=== PATIENT | male | born 1945 | race Caucasian/White ===

== ENCOUNTER 2016-09-26 14:35 | Emergency (ER) | payer OTHER ==
[~2016-09-26] VITALS: Ht 172.7 cm; Wt 127.0 kg
[~2016-09-26 14:35] MED LIST: ALLOPURINOL 30300 M2 PO; BENAZEPRIL HCL20 MG PO; CELEBREX 200 M200 MG PO; COMPOUNDING CREAM; CRESTOR10 MG PO; FISH OIL 1,001000 M2 PO; HYDROCODON-ACE1 EAC7 PO; HYDROCODON-ACE1 EACH PO; MELATONIN1 MG PO; NEURONTIN 300300 M1 PO; NORCO 5-325 TA1 EACH PO; PANTOPRAZOLE SO40 M1 PO; PROSTATE HEALT1 EAC1 PO; XALATAN2.5 ML OP; ZANAFLEX4 MG PO; ZANTAC 150MG T150 M1 PO
[2016-09-26] MEDS ORDERED: COLACE100 MG PO (15:16)
[2016-09-26] MEDS ORDERED: NORCO 5-325 TA1 EACH PO (15:27)
== END 2016-09-26 15:57 | disposition home or self-care (01) ==
LOC: ER 14:35
DX: S62.615A Displaced fracture of proximal phalanx of left ring finger, initial encounter for closed fracture (principal); I10 Essential (primary) hypertension; K21.9 Gastro-esophageal reflux disease without esophagitis; E78.5 Hyperlipidemia, unspecified; G89.29 Other chronic pain; M47.892 Other spondylosis, cervical region; H40.9 Unspecified glaucoma; Z90.49 Acquired absence of other specified parts of digestive tract; Z98.890 Other specified postprocedural states

== ENCOUNTER → 2016-12-29 | Outpatient (CLI) | payer OTHER ==
[~2016-12-29] VITALS: Ht 172.7 cm; Wt 127.5 kg
[~2016-12-29] MED LIST changes: +COLACE100 MG PO
--- NOTE | ~2016-12-29 | HPC ---
[facility] [place] [address] PAIN MANAGEMENT CONSULTATION Name: DEONTE NAIR Room #: REG Sagar Mckeon#: [id number] Admission: 12/29/16 Attend Phys: Ajit Sahu DO Discharge: Date of : 43 Report #: [id number] THIS REPORT FOR: //name// CC: Jaron Sahu HISTORY OF PRESENT ILLNESS: The patient is a very pleasant 71-year-old gentleman. I have treated him since about 2008 for symptomatic lumbar radiculopathy. He has done well with occasional epidural injections. He had 4 lumbar epidural injections in 2015. He has had 2 or 3 injections in 2014, 2013, 2012, again dating back to 2008. Notes, pain has begun to recur in his left back and leg. Pain is exacerbated with standing, walking and bending. Rates his pain 3 on a VAS at present though it does get problematic to the point that it interferes with function. He notes burning, tingling, spasm in his back. He is taking tizanidine and hydrocodone 5/325 p.r.n. Gabapentin 600 mg at bedtime for diabetic peripheral neuropathy. He takes Celebrex 200 mg daily ongoing. His current symptoms have eclipsed on those medications. PHYSICAL EXAMINATION: Shows a 71-year-old gentleman, moderately obese with a BMI of 42.7 kilograms per meter squared, vital signs; however, are stable. He does not use tobacco products. He rises from chair using armrest, modestly antalgic gait, decreased left hip flexion and lower extremity extension strength. Modestly positive straight leg raise on the left with diminished patellar reflex on the left side. 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 ASSESSMENT: 1. Symptomatic lumbar radiculopathy with left L3 radicular pain pattern in a gentleman with morbid obesity and requiring high risk complex medication management. 2. Acute exacerbation of lumbar radiculopathy, left L3 pattern. RECOMMENDATIONS: After discussion with the patient today, we have elected to renew hydrocodone 5/325, take one tablet q. 4 hours as needed for pain, dispensed 100 tablets. His last prescription for 90 tablets was in February of last year. He uses these with great restraint. We will renew tizanidine 4 mg t.i.d. for spasm, 90 tablets with 3 refills. His Celebrex is being prescribed by his general counsel physician. PROCEDURE: Left L3 transforaminal epidural injection under fluoroscopy. PROCEDURE NOTE: After both written and informed [place] [address] PAIN MANAGEMENT CONSULTATION Name: NAIRDEONTE Room #: REG [facility] Linda#: [id number] Admission: 12/29/16 Attend Phys: Ajit Sahu DO Discharge: Date of : 43 Report #: [id number] risk of spinal cord damage, infection, increased pain and paralysis, the patient agreed to proceed. The patient was taken to the fluoroscopy suite, placed in a prone position with appropriate abdominal bolstering. After sterile prep with ChloraPrep and sterile drape, a skin wheal with 1% Xylocaine was raised. A 22 gauge 4-1/2 inch epidural Tuohy needle was inserted. From an oblique approach into the posterior-superior aspect of the left L3-L4 neural foramen with continuous pressure on the glass syringe plunger for loss of resistance. Glass syringe was filled with 2 cc of 0.1 Xylocaine. The glass loss of resistance syringe was removed. A low volume extension tubing was connected, negative aspiration was accomplished for cerebrospinal fluid or blood. 1 mL of Omnipaque was injected which showed spread both within the epidural space and laterally along the nerve root. This was followed with 80 mg of triamcinolone plus 1 mL of 1.5% preservative-free Xylocaine. Needle was partially withdrawn, 0.5 mL of Xylocaine was injected to clear the needle and the needle was removed. The area was cleansed, band-aid was applied. The patient was allowed to ambulate to the recovery room, discharged in good and stable condition. <ELECTRONICALLY SIGNED> By: Ajit Sahu DO 01/01/17 0755 [id number] 1801 Ajit Sahu DO /nt
[2016-12-29 10:22] VITALS: BP 141/80
== END | disposition home or self-care (01) ==
LOC: PAIN 06:47
DX: M54.16 Radiculopathy, lumbar region (principal); G89.29 Other chronic pain; E11.42 Type 2 diabetes mellitus with diabetic polyneuropathy; E66.01 Morbid (severe) obesity due to excess calories; Z79.891 Long term (current) use of opiate analgesic; Z98.890 Other specified postprocedural states; Z68.41 Body mass index [BMI] 40.0-44.9, adult; Z79.899 Other long term (current) drug therapy

== ENCOUNTER → 2017-01-11 | Outpatient (CLI) | payer OTHER ==
[~2017-01-11] VITALS: Ht 172.7 cm; Wt 124.0 kg
--- NOTE | ~2017-01-11 | HPC ---
[facility] [place] [address] PAIN MANAGEMENT CONSULTATION Name: DEONTE NAIR Juan J Room #: REG [facility] [id number] Admission: 01/11/17 Attend Phys: Ajit Sahu DO Discharge: Date of : 44 Report #: [id number] THIS REPORT FOR: //name// CC: Jaron Sahu The patient is a 71-year-old gentleman who has long been treated for symptomatic lumbar radiculopathy. He has been treated since 2008 with occasional epidural injections, he had a transforaminal injection, left L3, 12/29/2016. Prior, he had had an injection back in February 2016. He had had a total of 4 epidural injections in 2015, 4 in 2014 and 1 in 2013. He returns to pain clinic today. He notes that injection at last visit afforded very good relief, in fact rates his subjective pain score at 1 on a VAS. He still has a little bit of paresthesia in the low back, left calf to foot, but it is nominal. He notes gait is much improved. PHYSICAL EXAMINATION: Shows 71-year-old gentleman, elevated BMI of 41.6, blood pressure 131/71, pulse 70, respirations 20. Alert and oriented to person, place and time, judged to be a reasonable historian. Cervical range of motion is full. Rises from chair using armrest. Gait is tandem. Lumbar flexion is modestly limited. Lower extremity strength is generally preserved. Again, the patient reports 95% ongoing relief following the epidural injection at last visit. He does take Celebrex 200 mg 1 a day and gabapentin 300 mg 2 tablets at bedtime. We had a long talk about therapeutic options today. MRI quite dated from 2007 notes changes at multiple levels L3-L4, L4-L5 and L5-S1, but again he has been remarkably stable with occasional epidural injections. RECOMMENDATIONS: 1. No interventional therapy required today. 2. If and when symptoms start to recur, we will have him increase his gabapentin from 300 mg 2 tablets at bedtime to 3 at bedtime titrating up to 1 in the morning and 3 at bedtime. Continue Celebrex 200 mg 1 a day. These have both been prescribed by Dr. Wagoner. I will be happy to see him if and when recurrent radicular symptoms arise. We can repeat the left L3 transforaminal epidural injection; however, presently doing remarkably well. We will postpone interventional therapy. Follow up as needed. By: 1520 46 Ajit Sahu DO /nt
[2017-01-11 11:30] VITALS: BP 131/71
== END | disposition home or self-care (01) ==
LOC: PAIN 07:06
DX: M54.16 Radiculopathy, lumbar region (principal); G89.29 Other chronic pain; Z98.890 Other specified postprocedural states; Z79.899 Other long term (current) drug therapy

== ENCOUNTER → 2018-05-17 | Outpatient (CLI) | payer OTHER ==
[~2018-05-17] VITALS: Ht 172.7 cm; Wt 127.0 kg
--- NOTE | 2018-05-20 15:25 | P ---
[facility] [place] [address] [place] [address] PROCEDURE REPORT Name: DEONTE NAIR Room #: REG [facility]#: [id number] Admission: 05/17/18 Attend Phys: Alex Noriega MD Discharge: Date of : 43 Report #: [id number] THIS REPORT FOR: //name// CC: Alex Charles MD DATE OF SERVICE: 05/17/2018 BRIEF HISTORY: The patient is a 73-year-old male known to me with a history of a small well-differentiated duodenal carcinoid tumor in 2012, so it was removed by endoscopic mucosal resection. He presents today for followup. He reports that he has been discharged from Dr. Charles's care with regards to follow up and his last urine for 5-HIAA was normal. PREOPERATIVE DIAGNOSES: History of duodenal carcinoid, also history of reflux disease. POSTOPERATIVE DIAGNOSIS: History of duodenal carcinoid. MEDICATIONS: Deep sedation with propofol per anesthesia. SPECIMEN: None. ESTIMATED BLOOD LOSS: None. PROCEDURE: EGD. FINDINGS: Prior to propofol sedation, procedure of upper endoscopy discussed with the patient as well as potential risks and its complications. He indicates he understands and desires that we proceed. DESCRIPTION OF PROCEDURE: With the patient in left lateral decubitus position, Olympus video endoscope was inserted in cervical esophagus under direct vision without difficulty. Examination of this organ through its entire length revealed normal esophageal mucosa down the squamocolumnar junction. It was noted that the patient has a history of severe esophagitis and grade D esophagitis in the past. There was no endoscopic evidence of esophagitis today. The squamocolumnar junction was normal. The mucosa was flat without ulcers or strictures. There was no evidence of Austin's mucosa. The hiatus hernia was not seen today. The scope was advanced in the stomach, was examined on end view as well as retroflexed views with normal appearing gastric mucosa. Upon retroflexion, no mass lesions were seen. The pylorus was normal. Duodenal bulb was normal. Duodenal sweep down to the fourth portion was normal. The scope was slowly withdrawn to the duodenal sweep and no lesions were seen. [facility] [address] [place] [address] PROCEDURE REPORT Name: DEONTE NAIR Juan J Room #: REG [facility]#: [id number] Admission: 05/17/18 Attend Phys: Alex Noriega MD Discharge: Date of : 44 Report #: [id number] duodenal papilla was identified and well seen and was noted to be within normal limits. At that point, the scope was slowly withdrawn and careful when circumferential views confirmed the above findings. The patient tolerated the procedure well. CONDITION OF THE PATIENT UPON DISCHARGE: Following procedure, the patient drowsy and prepared for colonoscopy. INSTRUCTIONS TO THE PATIENT AND FAMILY AT THE TIME OF DISCHARGE: No suspicious lesions seen in the duodenum. The exam was otherwise unremarkable. His esophagitis has endoscopically healed. He has been using pantoprazole at lowest dose to control symptoms and he adjusts as needed based on symptoms. He will continue to do the same. I would encourage weight loss with regards to his reflux. Would consider followup EGD in about 5 years. <ELECTRONICALLY SIGNED> By: Alex Noriega MD 05/20/18 1525 1006 1231 Alex Noriega MD /nt
--- NOTE | 2018-05-20 15:25 | P ---
[facility] [place] [address] [place] [address] PROCEDURE REPORT Name: DEONTE NAIR Room #: REG [facility]#: [id number] Admission: 05/17/18 Attend Phys: Alex Noriega MD Discharge: Date of : 43 Report #: [id number] THIS REPORT FOR: //name// CC: Alex Wagoner MD BRIEF HISTORY: The patient is a 73-year-old male with family history of colon cancer, father age 58. PREOPERATIVE DIAGNOSIS: High risk screening colonoscopy. POSTOPERATIVE DIAGNOSES: 1. Colon polyps. 2. Mild sigmoid diverticulosis coli. MEDICATIONS: Deep sedation with propofol per Anesthesia. SPECIMENS: 1. Diminutive polyp, proximal ascending colon. 2. Diminutive polyp at 40 cm. ESTIMATED BLOOD LOSS: 3 mL. PROCEDURE: Colonoscopy to cecum and terminal ileum with biopsy. FINDINGS: Prior to propofol sedation, procedure of colonoscopy discussed with the patient as well as potential risks and its complications. He indicates he understands and desires to proceed. DESCRIPTION OF PROCEDURE: With the patient in left lateral decubitus position, digital examination was completed which revealed no abnormalities. Subsequently, the Olympus video colonoscope was introduced in the rectum, advanced under direct vision to the cecum. Done with minimal difficulty. The cecum was identified by the ileocecal valve and the appendiceal orifice. I was able to visualize the distal segment of the terminal ileum, which was inspected and noted to be unremarkable. At that point, the scope was slowly withdrawn and careful circumferential views obtained including retroflexion in the ascending colon. Upon slow withdrawal of the scope, the prep was good, the mucosa was within normal limits, normal vascular pattern, normal light reflex. As we withdrew the scope, a flat 4 x 5 mm polyp was seen in the very proximal ascending colon. It was removed with large cup biopsy forceps. Scope was further withdrawn and no additional abnormalities were noted until we reached the sigmoid colon. At 40 cm, a diminutive polyp was seen and removed by biopsy. In addition, the patient did have scattered small diverticula. There was no endoscopic evidence of diverticulitis. The scope was withdrawn. No additional abnormalities were seen. Upon retroflexion of the rectum, no abnormalities were [facility] [address] [place] [address] PROCEDURE REPORT Name: DEONTE NAIR Juan J Room #: REG [facility]#: [id number] Admission: 05/17/18 Attend Phys: Alex Noriega MD Discharge: Date of : 43 Report #: [id number] seen. Scope was withdrawn. The patient tolerated the procedure well. CONDITION OF THE PATIENT UPON DISCHARGE: Following procedure, the patient was drowsy, arousable, conversant and will be discharged home when fully ambulatory. INSTRUCTIONS TO THE PATIENT AND FAMILY AT THE TIME OF DISCHARGE: The patient with family history of colon cancer as noted. Diminutive polyps identified and removed as described above. We will follow up on the pathology. Also, in view of his family history of colon cancer, I would suggest he return for a followup colon exam in 5 years. Last colonoscopy was more than 5 years ago. Withdrawal time from the cecum was 17 minutes 35 seconds. <ELECTRONICALLY SIGNED> By: Alex Noriega MD 05/20/18 1525 1037 1422 Alex Noriega MD /nt
--- NOTE | 2018-05-21 11:10 | PATH ---
[facility] [address] [place] [address] PATHOLOGY RPT PROCEDURE Name: DEONTE NAIR Juan J Room #: REG YAYA Mckeon#: [id number] Admission: 05/17/18 Date of : 43 Discharge: Report #: [id number] Path Case #: [id number] [facility] Accession Number: [id number] . 01 Material submitted: . PART A: PROXIMAL ASCENDING COLON POLYP PART B: COLON POLYP 40 CM . 01 Clinical history: . Pre-OP DX: Family history colon cancer, history of duodenal carcinoid Post-OP DX: Colon polyps . 02 Diagnosis: A. Polyp, proximal ascending colon polyp, endoscopic biopsy: - Hyperplastic polyp. - Negative for dysplasia. . B. Polyp, colon polyp 40 cm, endoscopic biopsy: - Tubular adenoma. - Negative for high grade dysplasia. (IUV:at;05/20/2018) QTA/05/20/2018 . 02 Electronically signed: . Naomi Garcia MD, Pathologist NPI- [id number] . 01 Gross description: . A. Received in formalin labeled "Deonte Nair, proximal ascending colon polyp BX," are 2 segments of white soft tissue measuring 0.9 x 0.3 x 0.3 cm in aggregate dimensions and ranging from 0.4 to 0.5 cm in maximum dimension. The specimen is submitted entirely in cassette A1. . B. Received in formalin labeled "Deonte Nair, colon polyp 40 cm BX," is a single segment of white soft tissue measuring 0.3 cm in maximum dimension. The specimen is entirely submitted in cassette B1. (TSD; 05/17/2018) TOB/TOB . 02 Pathologist provided ICD-10: K63.5, D12.6 . 02 CPT . 706274, 002069 Specimen Comment: A courtesy copy of this report has been sent to Specimen Comment: [phone], . Specimen Comment: Report sent to / [place] [address] PATHOLOGY RPT PROCEDURE Name: DEONTE NAIR Room #: REG YAYA Mckeon#: [id number] Admission: 05/17/18 Date of : 43 Discharge: Report #: [id number] Path Case #: [id number] Performed at: 01 [facility] Sheri Enciso [address] [place] [address] [address], [place], [place] [id number] MD Eugene Lopez MD Phone: [phone] Performed at: [address] [id number] MD Naomi Garcia MD Phone: [phone]
== END | disposition home or self-care (01) ==
LOC: GI 05-16 11:33
DX: Z12.11 Encounter for screening for malignant neoplasm of colon (principal); K63.5 Polyp of colon; D12.5 Benign neoplasm of sigmoid colon; K57.30 Diverticulosis of large intestine without perforation or abscess without bleeding; K21.9 Gastro-esophageal reflux disease without esophagitis; I10 Essential (primary) hypertension; E78.5 Hyperlipidemia, unspecified; H40.9 Unspecified glaucoma; M10.9 Gout, unspecified; Z90.49 Acquired absence of other specified parts of digestive tract; Z80.0 Family history of malignant neoplasm of digestive organs; Z98.0 Intestinal bypass and anastomosis status; Z86.012 Personal history of benign carcinoid tumor; Z98.890 Other specified postprocedural states; Z79.899 Other long term (current) drug therapy
CPT/HCPCS: 62110; 62900

== ENCOUNTER → 2018-06-06 | Outpatient (CLI) | payer OTHER ==
[~2018-06-06] VITALS: Ht 172.7 cm; Wt 126.6 kg
--- NOTE | ~2018-06-06 | HPC ---
[facility] [address] [place] [address] PAIN MANAGEMENT CONSULTATION Name: DEONTE NAIR Room #: REG [facility] Linda#: [id number] Admission: 06/06/18 Attend Phys: Rah Cabral MD Discharge: Date of : 43 Report #: [id number] THIS REPORT FOR: //name// CC: JARON Cabral DATE OF SERVICE: 06/06/2018 Followup visit for chronic low back pain radiating into the left leg. This is my first visit with the patient. He has been seeing Dr. Ajit Sahu in our clinic for approximately 10 years. His visits have been spaced about every 6-12 months. He has low back pain with radiculopathy and has received epidural injections on and off over the years. Unfortunately, if they were helpful early on, they have not been so over the last year or two. Dr. Sahu has attempted to move the injection slightly by performing a transforaminal at L3-L4. He has a fairly significantly degenerative disk at that level, but has not had an MRI for over 10 years to determine the soft tissue findings. His pain is more in the L5-S1 distribution involving the lateral aspect and posterior aspect of the leg. It is worse with standing and weightbearing. He is finding that it is harder and harder for him to do these activities, which is disappointing to him. He has been using a bit of pain medication to help him get through his day. He is reluctant to use hydrocodone and Dr. Sahu provided him with 100 hydrocodone 5/325 tablets on 09/20/2017. He still has about 5 or 10 left. He uses it mostly when the pain is severe or if he needs to do something that he must do. He always gets some pain relief. MEDICATIONS: Reviewed and reconciled. All other medications are provided by his primary care physician, Dr. Jaron Wagoner. He is on treatment for hypertension and takes gabapentin and Celebrex per record. He is on no blood thinners. He is morbidly obese with a BMI of 42.5. He is considered at low risk with the risk assessment tool of 0 for any addictive behaviors with his opioids. His functional assessment tool score is 31. SOCIAL HISTORY: He denies use of tobacco or alcohol. PHYSICAL EXAMINATION: GENERAL: Pleasant gentleman, moves easily from sitting to standing position, but cannot straighten up unless he takes a few steps. Once he is straight and starts moving, the pain in his back and his leg diminishes somewhat. He complains of pain mostly to the buttock. His gait is markedly antalgic. VITAL SIGNS: Blood pressure 127/79, heart rate 84, respirations 16. BMI 42.5. CHEST: Clear. CARDIAC: Rhythm is regular. [address] [address] PAIN MANAGEMENT CONSULTATION Name: DEONTE NAIR [facility] [id number] Admission: 06/06/18 Attend Phys: Rah Cabral MD Discharge: Date of : 43 Report #: [id number] MUSCULOSKELETAL: Examination of the spine reveals tenderness across the lumbosacral segment. Positive straight leg raising is noted on the left. There is pain in the hip. There is also a fair amount of tenderness about the knee joint, which demonstrates crepitus with movement. There is tenderness laterally as well as in the popliteal fossa laterally. He has decreased sensation in the calf. Deep tendon reflexes are absent bilaterally at knees and ankles. IMPRESSION: 1. Chronic low back pain with radiation into the left hip and leg. I believe this is likely radiculopathy, although it may be involving the L4-L5 nerve root. It could be involved from the lateral recess at the level of the degenerative disk at L3-L4, but could be lower as well. He does not want to have an MRI at this time. 2. Morbid obesity. 3. Hypertension. RECOMMENDATIONS: 1. I will continue his medication. We had a long discussion today about opioids in treatment of chronic intractable pain. His MME is currently less than 5 per day. This is considered ultra low use of an opioid medication. He may use it going forward effectively. 2. Epidural steroid injection might be repeated at a lower level. I would consider an L5 transforaminal or perhaps an L4-L5 two-level transforaminal and see if that provides more relief than the higher injection. This would be more in correlation with his dermatomal distribution of pain. 3. Medications provided. Preauthorization was sought for his injection and we will see him back in the clinic within the next month or two. By: 1228 1659 Rah Cabral MD /nt
[2018-06-06 09:30] VITALS: BP 127/79
--- NOTE | 2018-06-06 09:32 | NUR ---
Pain Clinic Assessment: 1. History of Osteoarthritis: History of Rheumatoid Arthritis: 2. Height: 5 ft. 8 in. 172.7 cm. Weight: 279.2 lb. oz. 126.645 kg. Patient's BMI: 42.5 3. Vital Signs: BP: 127/79 Pulse: 84 Resp: 16 Temp: 02 Sat: 97 ECG Mon: 4. Pain Intensity: 4-5 5. Fall Risk: Dizziness: N Needs help standing or walking: N Fallen in the last 3 months: N Fall risk comments: 6. Patient on Blood Thinner: None 7. History of Hypertension: Y 8. Opioid Therapy greater than 6 weeks: Y Opiate Contract Signed: 02/18/16 9. Risk Assessment Tool Provided: low risk 0 10. Functional Assessment Tool: 31 11. Recreational Drug Use: Never Drug Type: Tobacco Use: Never Smoker Tobacco Type: Amount or Packs/day: How Many Years: Alcohol Use: No Frequency: Quant:
== END ==
LOC: PAIN 05-30 10:42
DX: M54.5 Low back pain (principal); G89.29 Other chronic pain; M79.605 Pain in left leg; M25.552 Pain in left hip; I10 Essential (primary) hypertension; E66.01 Morbid (severe) obesity due to excess calories

== ENCOUNTER → 2018-12-26 | Outpatient (CLI) | payer OTHER ==
[~2018-12-26] VITALS: Ht 172.7 cm; Wt 122.9 kg
[~2018-12-26] MED LIST changes: +NORCO 5-325 TA1 EAC1 PO
[2018-12-26 10:04] VITALS: BP 136/73
--- NOTE | 2018-12-26 10:08 | NUR ---
Pain Clinic Assessment: 1. History of Osteoarthritis: Not Applicable History of Rheumatoid Arthritis: Not Applicable 2. Height: 5 ft. 8 in. 172.7 cm. Weight: 271.0 lb. oz. 122.925 kg. Patient's BMI: 41.2 3. Vital Signs: BP: 136/73 Pulse: 71 Resp: 18 Temp: 02 Sat: 95 ECG Mon: 4. Pain Intensity: 2 5. Fall Risk: Dizziness: N Needs help standing or walking: N Fallen in the last 3 months: N Fall risk comments: 6. Patient on Blood Thinner: None 7. History of Hypertension: Y 8. Opioid Therapy greater than 6 weeks: Y Opiate Contract Signed: 02/18/16 9. Risk Assessment Tool Provided: low risk 0 10. Functional Assessment Tool: 11. Recreational Drug Use: Never Drug Type: Tobacco Use: Never Smoker Tobacco Type: Amount or Packs/day: How Many Years: Alcohol Use: No Frequency: Quant:
--- NOTE | 2018-12-30 12:52 | HPC ---
[facility] [place] [address] PAIN MANAGEMENT CONSULTATION Name: DEONTE NAIR [facility] [id number] Admission: 12/26/18 ������������������ Attend Phys: Saadia Jorge Discharge: ������������������ Date of : 43 Report #: [id number] THIS REPORT FOR: //name// CC: Saadia Joreg Jaron Wagoner DATE OF SERVICE: 12/26/2018 CHIEF COMPLAINT: Chronic low back pain with lumbar radiculopathy. HISTORY OF PRESENT ILLNESS: This is a very pleasant gentleman of 73 years old that returns to the pain clinic today for a refill of his medication that he takes very sparingly to help treat his low back pain with radiculopathy. He reports that his pain score is a 2/10 today. Most of his issues are related to his peripheral neuropathy in his feet and legs, though he does have some pain in his knees and right shoulder. He feels that the hydrocodone taking about an average of 4 tablets a week are very beneficial in controlling his pain. He reports exacerbation of pain with walking and standing and prior to other activities such as mowing the lawn or going to restorationist. He does take his medicine prophylactically on those days and finds them very beneficial. He would like a refill of his hydrocodone today, which was last filled in May. ALLERGIES: No known drug allergies. CURRENT LIST OF MEDICATIONS: Hydrocodone 5/325, Colace, gabapentin 300 mg 4 times a day, prostate health capsules, fish oil, Protonix, Crestor, allopurinol, Celebrex, and Lotensin. PQRS: 1. He has arthritic changes in his bilateral knees and lumbar spine. Denies any rheumatoid arthritis. 2. Height is 5 feet 8 inches, weight is 271, BMI is 41. 3. Vital signs: Blood pressure 136/73, pulse is 71, respirations 18, oxygen sat is 95. 4. Pain score is 2/10. 5. Denies dizziness, does not need help walking or standing, has not fallen in the last 3 months. 6. The patient is not on any blood thinners, but does take medicine for hypertension. His opioid therapy is greater than 6 weeks; therefore, an opioid signed contract is on the chart. 7. Risk assessment tool is low. Functional assessment is . 8. Recreational drug use, he denies. He is not a smoker and does not drink alcohol. According to the prescription monitoring system, the patient last filled his medication in May. He does take this medicine very sparingly. According [facility] [address] [place] [address] PAIN MANAGEMENT CONSULTATION Name: DEONTE NAIR [facility] [id number] Admission: 12/26/18 ������������������ Attend Phys: Saadia Jorge Discharge: ������������������ Date of : 43 Report #: [id number] to the CDC guidelines, he is less than 20 MME per day, some days 0, some days 20. PHYSICAL EXAMINATION: GENERAL: This is a pleasant gentleman of 73 years old who appears his stated age. He is alert and orientated. HEENT: Normocephalic, atraumatic. Extraocular eye muscles are intact. Mucous membranes are moist. MUSCULOSKELETAL: The patient moves easily from sitting to standing position. His gait is markedly antalgic. He has tenderness in the lumbosacral segment of his spine. Positive straight leg raising noted on the left. Crepitus in bilateral knees. He has decreased sensation in his lower extremities. Strength is generally preserved. His lumbar flexion is limited. IMPRESSION: 1. Chronic low back pain with radiculopathy following the L4-L5, L5-S1 dermatomal distribution. 2. Bilateral knee pain. 3. Morbid obesity. 4. Complex medical management under terms of written opioid agreement. We reviewed the fact that opiate medications are being used to provide analgesia adequate to support activities of daily living, not attempting to achieve a specific pain score on the 0-10 Visual Analog Scale. The current opiate medications are providing sufficient analgesia to allow the patient to participate in activities of daily living. The patient is not exhibiting any aberrant behavior suggestive of drug diversion. The patient is not having any adverse reactions to medications. The patient is not suffering from daytime somnolence or mental acuity changes. The patient is managing opiate-induced constipation with appropriate tvbh-qsh-jwbjjdr agents and dietary considerations. The patient was counseled on concern for caution with operating a motor vehicle while using opiate medications. A physical exam was performed and the patient's functional status was evaluated. All patients with back pain were advised against the bed rest greater than 4 days and were advised to return to normal activities. Pain score assessment was noted and the treatment plan was reviewed with the patient. All current medications, both prescribed and OTC were reviewed and reconciled on the electronic medical record. Tobacco screening was accomplished and smoking cessation was advised when indicated. BMI was noted and diet/exercise modification was recommended for all patients following outside normal parameters. I reviewed with the patient today their responsibilities to safeguard prescription medications, reviewed their responsibility to utilize medications only as prescribed by the physician. They are to seek and receive pain medications only from 1 physician group ([facility]). They are to use 1 pharmacy and keep the clinic informed if they change pharmacies. Their [facility] [address] [place] [address] PAIN MANAGEMENT CONSULTATION Name: DEONTE NAIR Room #: REG [facility]#: [id number] Admission: 12/26/18 ������������������ Attend Phys: Saadia Jorge Discharge: ������������������ Date of : 43 Report #: [id number] responsibilities include making followup visits in a timely fashion and to avoid abrupt discontinuation of medication usage. Their responsibilities further include bringing their medications (bottles from the pharmacy with residual pills) to the visit for possible confirmation of pill counts and the patient understands it is their responsibility to submit to random drug screens to ensure both that the medications prescribed are present, and that no other controlled substances are present. All prescriptions provided today were generated electronically. PLAN: 1. We discussed treatment options with the patient today. The patient had seen Dr. Ajit Sahu in the past and had received numerous injections that were very beneficial. He is somewhat reluctant to have injections with his new physician, Dr. Rah Cabral. I explained to him that all of his physicians are very well trained in giving the epidurals. If he feels that he needs one in the future, Dr. Cabral is capable of doing that for him. The patient felt reassured by this. He does not feel he needs them right now, doing quite well, but if his symptoms worsen, he will make an appointment. 2. Scripts given today for hydrocodone 5/325, #100. This does not last the patient several months since he takes these very sparingly before activities. His last fill was in May. There is a prior authorization on the chart that he is able to fill this medication until May of 2019 without additional prior authorizations. 3. The patient is seen by Dr. Rah Cabral who collaborated care today and saw him as well. The patient will return as needed for an injection or medication refills. ��������������������������������������������� <ELECTRONICALLY SIGNED> ���������������������������������������� By: Saadia Jorge ��������������������������������������������� 12/30/18 1252 [id number] Saadia Jorge /nt
== END ==
LOC: PAIN 06:52
DX: M47.26 Other spondylosis with radiculopathy, lumbar region (principal); M25.561 Pain in right knee; M25.562 Pain in left knee; E66.01 Morbid (severe) obesity due to excess calories; Z79.891 Long term (current) use of opiate analgesic; Z79.899 Other long term (current) drug therapy

== ENCOUNTER → 2019-07-04 | Outpatient (CLI) | payer OTHER ==
[~2019-07-04] VITALS: Ht 172.7 cm; Wt 124.2 kg
[2019-07-04 10:08] VITALS: BP 119/66
--- NOTE | 2019-07-04 10:16 | NUR ---
Pain Clinic Assessment: 1. History of Osteoarthritis: Not Applicable History of Rheumatoid Arthritis: Not Applicable 2. Height: 5 ft. 8 in. 172.7 cm. Weight: 273.8 lb. oz. 124.195 kg. Patient's BMI: 41.6 3. Vital Signs: BP: 119/66 Pulse: 67 Resp: 16 Temp: 02 Sat: 94 ECG Mon: 4. Pain Intensity: 3 5. Fall Risk: Dizziness: N Needs help standing or walking: Y Fallen in the last 3 months: N Fall risk comments: 6. Patient on Blood Thinner: None 7. History of Hypertension: Y 8. Opioid Therapy greater than 6 weeks: Y Opiate Contract Signed: 02/18/16 9. Risk Assessment Tool Provided: low risk 0 10. Functional Assessment Tool: 11. Recreational Drug Use: Never Drug Type: Tobacco Use: Never Smoker Tobacco Type: Amount or Packs/day: How Many Years: Alcohol Use: No Frequency: Quant:
--- NOTE | 2019-07-08 08:23 | HPC ---
[facility] [address] [address] PAIN MANAGEMENT CONSULTATION Name: DEONTE NAIR Room #: [facility] [id number] Admission: 07/04/19 Attend Phys: Saadia Jorge Discharge: Date of : 44 Report #: [id number] THIS REPORT FOR: cc: Jaron Wagoner MD, Neal A. MD Hocker,Saadia OVALLE ~ CC: Saadia Wagoner DATE OF SERVICE: 07/04/2019 CHIEF COMPLAINT: Chronic low back pain with lumbar radiculopathy. HISTORY OF PRESENT ILLNESS: This is a very pleasant 74-year-old gentleman who returns to the pain clinic for refill of his medications. He was last seen in December where he was given hydrocodone 5/325, 100 tablets. The patient still has a few pain pills left per his report. He takes these very sparingly. Per his report today, he has not had any pain pills this entire week. He complains of left leg pain and lower back pain. It is a deep aching pain at times, rating it at 3/10 today, it is worse with activity and walking. He uses a cane mostly for balance. He reports that the medications are very beneficial, especially if he is going to work in the yard or go to mandaen. He takes these preemptively before he has increased pain and he is able to do his activities well with his current medicines. He reports he has taken a few more lately due to working in the yard. He used to have his grandsons help him, but they are away at college. Today, he would like a refill of his hydrocodone. ALLERGIES: No known drug allergies. CURRENT LIST OF MEDICATIONS: Hydrocodone 5/325 p.r.n., Colace, gabapentin, prostate health, fish oil, Protonix, Crestor, allopurinol, Celebrex and Lotensin. PQRS: 1. He has arthritic changes in his knees and lumbar spine. Denies any rheumatoid arthritis. 2. Height is 5 feet 8 inches, weight is 273, BMI is 41. 3. Vital signs 119/66, pulse is 67, respirations 16, oxygen sat is 94. 4. Pain score is 3/10. 5. Denies dizziness. Does have a cane that he uses for ambulation for balance. Has not fallen in the last 3 months. 6. The patient is not on any blood thinners, but does take medicine for hypertension. Opioid therapy is greater than 6 weeks; therefore, an opioid signed contract on the chart. 7. Risk assessment is low. Functional assessment is . 8. Recreational drug use, he denies. He is not a smoker and does not drink [address] [address] PAIN MANAGEMENT CONSULTATION Name: DEONTE NAIR Juan J Room #: REG [facility] Linda#: [id number] Admission: 07/04/19 Attend Phys: Saadia Jorge Discharge: Date of : 43 Report #: [id number] alcohol. According to the prescription monitoring system, the patient last filled his medications in December, taking them very sparingly. His morphine mEq is up to 5 MMEs per day at max. PHYSICAL EXAMINATION: GENERAL: This is alert and orientated, very pleasant 74-year-old gentleman who is a good historian. Placing his pain score at 3/10 today. HEENT: Normocephalic, atraumatic. Extraocular eye muscles are intact. Mucous membranes are moist. MUSCULOSKELETAL: He moves from sitting to standing position without difficulty. He does use a cane for balance, but does have a slow antalgic gait. He has tenderness in his lumbosacral segment of his back, radiates into his left hip. Today, he has decreased sensation in his lower extremities. His strength is 5/5 bilaterally in his lower extremities. IMPRESSION: 1. Chronic low back pain with radiculopathy at the L4-L5 and L5-S1 dermatomal distribution. 2. Bilateral knee pain with osteoarthritis. 3. Morbid obesity. 4. Complex medical management under terms of written opioid agreement. We reviewed the fact that opiate medications are being used to provide analgesia adequate to support activities of daily living, not attempting to achieve a specific pain score on the 0-10 Visual Analog Scale. The current opiate medications are providing sufficient analgesia to allow the patient to participate in activities of daily living. The patient is not exhibiting any aberrant behavior suggestive of drug diversion. The patient is not having any adverse reactions to medications. The patient is not suffering from daytime somnolence or mental acuity changes. The patient is managing opiate-induced constipation with appropriate cely-zbz-zjywqso agents and dietary considerations. The patient was counseled on concern for caution with operating a motor vehicle while using opiate medications. A physical exam was performed and the patient's functional status was evaluated. All patients with back pain were advised against the bed rest greater than 4 days and were advised to return to normal activities. Pain score assessment was noted and the treatment plan was reviewed with the patient. All current medications, both prescribed and OTC were reviewed and reconciled on the electronic medical record. Tobacco screening was accomplished and smoking cessation was advised when indicated. BMI was noted and diet/exercise modification was recommended for all patients following outside normal parameters. [address] [address] PAIN MANAGEMENT CONSULTATION Name: DEONTE NAIR Room #: REG [facility]#: [id number] Admission: 07/04/19 Attend Phys: Saadia OVALLE Ania Discharge: Date of : 44 Report #: [id number] I reviewed with the patient today their responsibilities to safeguard prescription medications, reviewed their responsibility to utilize medications only as prescribed by the physician. They are to seek and receive pain medications only from 1 physician group ( [facility]). They are to use 1 pharmacy and keep the clinic informed if they change pharmacies. Their responsibilities include making followup visits in a timely fashion and to avoid abrupt discontinuation of medication usage. Their responsibilities further include bringing their medications (bottles from the pharmacy with residual pills) to the visit for possible confirmation of pill counts and the patient understands it is their responsibility to submit to random drug screens to ensure both that the medications prescribed are present, and that no other controlled substances are present. All prescriptions provided today were generated electronically. PLAN: We discussed treatment options with the patient today. The patient believes his hydrocodone is very beneficial in allowing him to work around his house and yard as well as be active at [employer]. He does not take them on a daily basis and they do not cause any constipation or he does not feel overmedicated by taking this medicine. Today, we will have Dr. Alli Hernandez fill his medication, who is covering today since Dr. Cabral is not here. Script will be written for , #100. I assume this will last the patient another 6 months. The patient is seen in collaboration with Dr. Alli Hernandez today. <ELECTRONICALLY SIGNED> By: Saadia Jorge 07/08/19 0823 [id number] Saadia Jorge /nt
== END | disposition home or self-care (01) ==
LOC: PAIN 06:41
DX: Z45.1 Encounter for adjustment and management of infusion pump (principal); M54.16 Radiculopathy, lumbar region; G89.29 Other chronic pain; M17.0 Bilateral primary osteoarthritis of knee; E66.01 Morbid (severe) obesity due to excess calories; Z98.890 Other specified postprocedural states; Z79.899 Other long term (current) drug therapy; Z79.891 Long term (current) use of opiate analgesic; Z68.41 Body mass index [BMI] 40.0-44.9, adult

== ENCOUNTER 2020-04-19 20:21 | Inpatient (IN) | payer OTHER ==
[~2020-04-19] VITALS: Ht 175.3 cm; Wt 117.6 kg
[2020-04-19 20:25] VITALS: BP 138/81; BP 140/77
[2020-04-19 20:48] VITALS: BP 138/81
[2020-04-19 21:38] LABS: RBC 4.43 mil/uL (4.50-6.00)
[2020-04-19 21:40] LABS: BASOPHILS 0.4 % (0.0-2.0); HEMOGLOBIN 14.5 gm/dL (14.0-18.0); LYMPHOCYTES 10.3 % (24.0-44.0); MCH 32.7 pg (26.0-34.0); MCHC 34.5 g/dL (28.0-37.0); MCV 94.8 fL (80.0-100.0); MONOCYTES 11.8 % (1.0-8.0); PLATELET COUNT 140 thou/uL (150-400); POLYS 77.5 % (36.0-66.0); WBC 5.3 thou/uL (4.0-11.0)
[2020-04-19 21:53] LABS: ANION GAP 15 mmol/L (7-16); BUN 28 mg/dL (7-18); CALCIUM 8.3 mg/dL (8.5-10.1); CHLORIDE 99 mmol/L (98-107); CO2 19 mmol/L (21-32); CREATININE 1.1 mg/dL (0.7-1.3); GLUCOSE 132 mg/dL (74-106); POTASSIUM 4.1 mmol/L (3.5-5.1); SODIUM 133 mmol/L (136-145)
[2020-04-19 22:03] LABS: ALBUMIN 2.9 g/dL (3.4-5.0); MAGNESIUM 1.8 mg/dL (1.8-2.4); SGOT 167 U/L (15-37); SGPT 76 U/L (30-65); TOTAL BILIRUBIN 0.7 mg/dL (0.2-1.0); TOTAL PROTEIN 6.5 g/dL (6.4-8.2); TROPONIN-I <0.06 ng/mL (<0.06)
--- NOTE | 2020-04-19 22:41 | NUR ---
talked with amelia at [phone].
[2020-04-20 00:32] LABS: URINE BILIRUBIN NEGATIVE (Negative); URINE BLOOD 3+ (Negative); URINE CLARITY CLEAR; URINE COLOR YELLOW; URINE GLUCOSE-RANDOM* NEGATIVE (Negative); URINE KETONES 1+ (Negative); URINE LEUKOCYTES-REFLEX NEGATIVE (Negative); URINE NITRITE-REFLEX NEGATIVE (Negative); URINE PROTEIN (DIPSTICK) TRACE (Negative); URINE UROBILINOGEN 0.2 E.U./dl (0.2-1.0)
[2020-04-20 00:46] LABS: SQUAMOUS 0-3 Few /LPF (0-3); URINE WBC-REFLEX 0-5 Rare /HPF (0-5)
[2020-04-20 00:47] LABS: BACTERIA-REFLEX 1-9 Few /HPF (None Seen); CASTS None Seen /LPF (None Seen); CRYSTALS None Seen /LPF (None Seen); MUCUS 4-6 Moderate strn/LPF (None Seen)
--- NOTE | 2020-04-20 07:15 | EKG ---
[place] [address] [address] [facility] [place] [address] ELECTROCARDIOGRAM REPORT Name: DEONTE NAIR Room #: 170-16 ADM IN .R.#: [id number] Admission: 04/19/20 Attend Phys: Jaron Wagoner MD Discharge: Date of : 44 Report #: [id number] [facility] ED Test Date: 2020-04-19 Test Time: 21:01:27 Pat Name: DEONTE NAIR Department: Room: 170 Gender: M Manager Intensive Care Unit: : [id number] Requested By: Ponce Burton Order Number: [id number] MD: Duncan Schneider Measurements Intervals [place] Rate: 81 P: 23 MN: 167 QRS: -31 QRSD: 112 T: 76 QT: 376 QTc: 437 Interpretive Statements Sinus rhythm Borderline IVCD with LAD Anteroseptal infarct, old Compared to ECG 08/12/2001 23:36:10 No significanc change Electronically Signed On 04-20-2020 7:15:09 VICE PRESIDENT OF ADVERTISING by Duncan Schneider [email or web address] <ELECTRONICALLY SIGNED> By: Duncan Schneider MD, [facility] 04/20/20 0715 00 00 Duncan Schneider MD, FACC /EPI
[2020-04-20 08:37] VITALS: BP 121/74
[2020-04-20 12:45] VITALS: BP 112/62
--- NOTE | 2020-04-20 14:53 | NUR ---
75 y/o male presenting to the ED via EMS c/o SOB. He is here because he is feeling sicker. He says has been sick for about a week. His was positive for COVID-19 13 days ago and she is getting better. However his cough is getting worse body aches, headache, and worsening shortness of breath. He reports getting weak and has a hard time getting out of bed to the bathroom. No loss of taste or smell. Patient also reports diarrhea for the past 2 to 3 days and he vomited once a day or 2 days prior to ED presentation. Pt was tachypneic upon arrival with shallow respirations and a RR of 32 per EMS. Influenza A & B negative but was found to be COVID Positive per PCR. CXR shows "Diffuse bilateral interstitial opacities and patchy airspace disease most consistent with multifocal pneumonia and suspicious for COVID pneumonia given history". Dr. Wagoner has admitted the patient for Acute Hypoxic respiratory failure secondary to COVID -19 Infection. Plan is to administer IV Antibiotics, IV steroids, Remdesiver, Ivermectin and Respiratory breathing treatments. Malka Wong is listed as contact at [phone]. Spoke with Malka and introduced role of CM informed will follow for discharge needs.
[2020-04-20 16:35] VITALS: BP 125/69
[2020-04-20 20:00] VITALS: BP 118/56
[2020-04-21] VITALS (7 sets, daily range): BP systolic 116–143; BP diastolic 61–79
[2020-04-21 05:35] LABS: HEMOGLOBIN 13.6 gm/dL (14.0-18.0); MCH 31.9 pg (26.0-34.0); MCHC 33.2 g/dL (28.0-37.0); RBC 4.27 mil/uL (4.50-6.00); RDW 13.1 % (10.5-14.5); WBC 7.7 thou/uL (4.0-11.0)
[2020-04-21 06:13] LABS: ALBUMIN 2.4 g/dL (3.4-5.0); CALCIUM 7.9 mg/dL (8.5-10.1); DIRECT BILIRUBIN 0.1 mg/dL (<0.1-0.2); PHOSPHORUS 2.5 mg/dL (2.5-4.9); POTASSIUM 4.1 mmol/L (3.5-5.1); TOTAL BILIRUBIN 0.5 mg/dL (0.2-1.0); TOTAL PROTEIN 5.8 g/dL (6.4-8.2)
--- NOTE | 2020-04-21 19:44 | NUR ---
report attempted with no answer
--- NOTE | 2020-04-21 19:59 | NUR ---
NURSE REQUEST 3 MINUTES AND WILL CALL BACK TO GET REPORT
[2020-04-22 04:30] VITALS: BP 132/87
--- NOTE | 2020-04-22 06:36 | NUR ---
PT ARRIVED VIA CART FROM ER. PT WAS PLACED ON NRB AND PLACED PT ON CONTINUOS PULSE OX. PT SATS ARE 96% ON NRB. ALL ADMISSION COMPLETED AND CAREPLAN PUT IN PLACE. SPOKE WITH DR. Rosado ABOUT PT WHEN HE ROUNDED THIS AM. NO COMPLAINTS FROM PT.
[2020-04-22 07:10] LABS: ALBUMIN 2.3 g/dL (3.4-5.0); CALCIUM 8.3 mg/dL (8.5-10.1); DIRECT BILIRUBIN 0.1 mg/dL (<0.1-0.2); PHOSPHORUS 2.4 mg/dL (2.5-4.9); POTASSIUM 4.1 mmol/L (3.5-5.1); TOTAL BILIRUBIN 0.5 mg/dL (0.2-1.0); TOTAL PROTEIN 5.8 g/dL (6.4-8.2)
[2020-04-22 07:46] VITALS: BP 134/86
--- NOTE | 2020-04-22 14:55 | NUR ---
PT CARE ASSUMED AT 0700. A&Ox4. IV PATENT WITH NO REDNESS OR EDEMA, SALINE LOCKED. 2/4 REMDESIVIR GIVEN. ONE TIME DOSE OF LASIX GIVEN. URINAL AT BEDSITE. UP IN RECLINER. DAY THREE ISOLATION. COVID POSITIVE. PT WAS SWITCHED TO HIGHFLOW AND DID NOT TOLERATE THIS. DESATED TO THE LOW 80'S. SWITCHED BACK TO THE NONREBREATHER ON 15L. UP WITH STANDBY ASSIST TO THE RECLINER. CALL LIGHT IN REACH. WILL CONTINUE TO MONITOR.
--- NOTE | 2020-04-22 15:46 | NUR ---
INITIAL ASSESSMENT: Received consult. GUERRERO reviewed chart and spoke with nursing. Pt was admitted from home and placed in Enhanced Isolation due to COVID-19. Pt is afebrile and requiring 15L NRB. Pt is on IV abx and IV steroids. Pt is completing course of Remdesivir. GUERRERO spoke with pt's , Malka, via phone. Introduced role of GUERRERO. Pt is normally alert/orientated and lives at home with his . Prior to admission, pt was using a cane. Pt was not on O2. No hx of services or post-acute placement. Pt's PCP is Dr. Wagoner. No weekend discharge planned. Pt's states they have a technician terminal and repeater care insurance policy if needed. GUERRERO provided contact info for the nurses station. GUERRERO is following to assist as needed with discharge planning.
[2020-04-22 15:50] VITALS: BP 98/66
[2020-04-22 19:11] VITALS: BP 105/69
[2020-04-23 03:50] VITALS: BP 124/80
--- NOTE | 2020-04-23 05:35 | NUR ---
PT SITTING ON BEDSIDE SOME LYING SOME. DENIES NEED FOR PAIN MEDICATION. VOIDING PER URINAL. RESTING COMFORTABLY. NO NEEDS VOICED. CALL LIGHT WITHIN REACH. FREQUENT OBSERVATION.
[2020-04-23 06:00] LABS: ALBUMIN 2.2 g/dL (3.4-5.0); CALCIUM 8.3 mg/dL (8.5-10.1); CREATININE 1.1 mg/dL (0.7-1.3); DIRECT BILIRUBIN 0.1 mg/dL (<0.1-0.2); PHOSPHORUS 2.9 mg/dL (2.6-4.7); TOTAL BILIRUBIN 0.5 mg/dL (0.2-1.0); TOTAL PROTEIN 5.6 g/dL (6.4-8.2)
[2020-04-23 07:18] VITALS: BP 137/76
[2020-04-23 09:00] VITALS: BP 127/58
[2020-04-23 15:11] VITALS: BP 127/58
--- NOTE | 2020-04-23 15:15 | NUR ---
RN ASSUMED PT'S CARE AT 0700AM, PT IS A&OX3, PT IS CONTINUING HIGH FLOW O2 45L/MIN/NC , O2 90% TO KEEP O2SAT >92%, PT HAS IV LASIX 40MG TODAY, PT'S VS ARE STABLE BY THIS TIME, PT IS CONTINUING IV ABX , PT HAS SOB WITH ACTIVITIES, PT DENIES PAIN AT THIS TIME.
[2020-04-23 20:21] VITALS: BP 132/73
--- NOTE | 2020-04-24 01:39 | NUR ---
ASSESSED AT START OF SHIFT. PT A&OX4. DENIES PAIN. ON HIFLOW O2 50L AT 92%. PT WEARS CPAP AT NIGHT. SCHEDULED BREATHING TREATMENT RECEVIED. LUNG SOUNDS DIMINISHED. URINAL AT BEDSIDE. NIGHT TIME MEDS GIVEN. FALL PREC IN PLACE AND WILL CONT TO MONITOR.
[2020-04-24 05:37] VITALS: BP 131/71
[2020-04-24 07:47] LABS: BE(vivo) 2.8 mmol/L (-2 to +3); HCO3 25.6 mmol/L (22.0-26.0); PCO2 33.6 mmHg (35.0-45.0); PO2 64.6 mmHg (80.0-100.0); pH 7.499 (7.360-7.450); sO2 94.4 % (92.0-98.0)
[2020-04-24 08:50] VITALS: BP 141/81
[2020-04-24 09:55] LABS: ALBUMIN 2.3 g/dL (3.4-5.0); CALCIUM 8.3 mg/dL (8.5-10.1); CREATININE 1.1 mg/dL (0.7-1.3); DIRECT BILIRUBIN 0.2 mg/dL (<0.1-0.2); PHOSPHORUS 2.5 mg/dL (2.5-4.9); POTASSIUM 3.8 mmol/L (3.5-5.1); TOTAL BILIRUBIN 0.6 mg/dL (0.2-1.0); TOTAL PROTEIN 5.8 g/dL (6.4-8.2)
[2020-04-24 15:17] VITALS: BP 141/81
[2020-04-24 18:58] VITALS: BP 111/48
--- NOTE | 2020-04-24 21:46 | NUR ---
PT STATED HE CAN NOT TOLERATE THE BIPAP AND THAT HE IS GOING TO SLEEP WITH THE OPTI FLOW TONIGHT. DR JIM CALLED ANSWERING SERVICE CALLED AND LEFT MESSAGE REGARDING PTS DECISION. EARLIER IN SHIFT PT REPORTED HAVING DIFFICULTY URINATING. PT URINATED 300 RITA, BLADDER SCANNED PT AFTER VOID AND SCANNED 154.
[2020-04-25 03:18] VITALS: BP 129/70
[2020-04-25 08:08] VITALS: BP 135/82
[2020-04-25 16:14] VITALS: BP 138/71
[2020-04-25 19:40] VITALS: BP 118/73
--- NOTE | 2020-04-25 20:05 | NUR ---
RN ASSUMED PT'S CARE AT 0700AM, PT IS A&OX3 , PT IS ON OPT-FLOW O2 45L/MIN/NC , 93% TO KEEP O2SAT >92%, BUT PT STILL HAS SOB WITH ACTIVITIES, PT'S VS ARE STABLE, PT IS CONTINUING IV ABX, PT CAN GET UP TO BSC.
[2020-04-26 03:42] VITALS: BP 133/70
--- NOTE | 2020-04-26 04:50 | NUR ---
PT MAKING SLOW PROGRESS TOWARDS GOALS. NOTED O2 SAT 89-91% DURING SPOT CHECKS. OPTIFLO OXYGEN DEVICE IN USE. PT REFUSED BIPAP OVERNIGHT. ENCOURAGED USE DURING THE DAY TIME WHILE AWAKE TO HELP OVERCOME "JUST TOO MUCH PRESSURE."
[2020-04-26 05:48] LABS: CALCIUM 8.2 mg/dL (8.5-10.1); CREATININE 1.2 mg/dL (0.7-1.3); POTASSIUM 3.6 mmol/L (3.5-5.1)
[2020-04-26 05:55] LABS: HEMATOCRIT 39.5 % (42.0-52.0); HEMOGLOBIN 13.4 gm/dL (14.0-18.0); MCH 32.2 pg (26.0-34.0); MCHC 33.8 g/dL (28.0-37.0); MCV 95.3 fL (80.0-100.0); RBC 4.15 mil/uL (4.50-6.00); RDW 12.9 % (10.5-14.5); WBC 8.1 thou/uL (4.0-11.0)
[2020-04-26 07:33] VITALS: BP 129/70
--- NOTE | 2020-04-26 14:26 | NUR ---
Pt seen for LOS. Pt with fair appetite, seems to be improving. Noted ensure enlives ordered TID. Weight on admit reported at 270#, now increased to 361# today. Pt undergoing diuresis. No c/o GI distress at present, last BM 04/25. No PU noted. Pt remains at low nutrition risk with current interventions in place.
[2020-04-26 15:11] VITALS: BP 123/73
--- NOTE | 2020-04-26 15:46 | NUR ---
GUERRERO reviewed chart and spoke with nursing and attending physician. Pt remains in Enhanced Isolation due to COVID-19. Pt is afebrile and requiring optiflow. Pt is on IV abx and IV steroids. GUERRERO received voice message from pt's son, Rocky ([phone]) requesting an update. GUERRERO spoke with pt's , Malka, via phone to provide update. Malka gave consent for GUERRERO to call Rocky and provide update. GUERRERO returned call to Rocky and left voice message. GUERRERO is following to assist as needed with discharge planning.
--- NOTE | 2020-04-26 16:21 | NUR ---
PATIENT NOW SLEEPING AND RESPIRATIONS ARE NON LABORD ON OPTI RETA. HAD PROMISE HE MAY TRY THE BIPAP THIS AFTERNOON BUT LATER ON CHANGED HIS MIND. WILL CONT WITH PLAN OF CARE.
[2020-04-26 19:19] VITALS: BP 137/73
[2020-04-27 03:11] VITALS: BP 112/79
--- NOTE | 2020-04-27 05:27 | NUR ---
PT MAKING PROGRESS TOWARDS GOALS. SPOKE WITH PT ALONG WITH RT IN ROOM. ENCOURAGED PT TO WEAR BIPAP OVERNIGHT. DISCUSSED POSSIBILITY OF LOWERING THE PRESSURE SETTINGS IN AN EFFORT TO INCREASE PTS COMPLIANCE. RT DID START THE PT ON BIPAP 01/25 RATE=12 AND FI02 100%. NOTED O2 SATS VARRIED FROM 97-100% DEPENDING UPON IF THE PT WAS AWAKE AND MOVING A LITTLE OR CALM AND STILL. PT STAYED ON BIPAP FROM APPROXIMATELY SIX HOURS. CONTINUE TO MONITOR.
[2020-04-27 08:30] VITALS: BP 135/76
--- NOTE | 2020-04-27 13:50 | NUR ---
SW reviewed chart and spoke with nursing. Pt remains in Enhanced Isolation due to COVID-19. Pt is afebrile and on optiflow at 50L. Pt is on IV abx and IV steroids. Pt to have dose of IV lasix today. Pt will need therapy evals ordered when able to partcipate. GUERRERO is following to assist as needed with discharge planning.
--- NOTE | 2020-04-27 15:18 | NUR ---
assumed care of pt at 0700. pt alert and oriented, in no acute distress. maintains spo2 on optiflow at 55L. on bipap in the afternoon while napping. calls appropriately. good appetite. using urinal. slow progress toward poc goals.
[2020-04-27 15:48] VITALS: BP 112/60
[2020-04-27 19:29] VITALS: BP 128/77
[2020-04-28 04:36] VITALS: BP 121/77
--- NOTE | 2020-04-28 06:08 | NUR ---
PT MAKING SLOW PROGRESS TOWARDS GOALS. PT ON BIPAP SINCE APPROXIMATELY 2300HR LAST NIGHT. SEE RT CHARTING FOR SETTINGS. O2 SATS 95-99% WHILE ON BIPAP. DOES STILL DESAT TO 88-90% WHEN SPEAKING. DID STATE HE BELIEVES THE BIPAP HELPS WITH THE WORKLOAD OF BREATHING.
[2020-04-28 06:32] LABS: CALCIUM 8.5 mg/dL (8.5-10.1); POTASSIUM 3.7 mmol/L (3.5-5.1)
[2020-04-28 07:15] VITALS: BP 129/82
[2020-04-28 11:38] LABS: BE(vivo) 5.5 mmol/L (-2 to +3); PCO2 38.6 mmHg (35.0-45.0); PO2 54.3 mmHg (80.0-100.0); pH 7.494 (7.360-7.450); sO2 90.7 % (92.0-98.0)
--- NOTE | 2020-04-28 13:46 | NUR ---
GUERRERO reviewed chart and spoke with nursing and attending physician. Pt remains in Enhanced Isolation due to COVID-19. Pt is afebrile and requiring bipap/optiflow support. Pt is on IV steroids and IV lasix. Pt will need therapy evals when able to participate. GUERRERO left voice message for pt's son, Rocky. GUERRERO is following to assist as needed with discharge planning.
[2020-04-28 15:12] VITALS: BP 109/68
--- NOTE | 2020-04-28 17:19 | NUR ---
ASSUMED CARE OF PT AT 0700. PT ALERT AND ORIENTED IN MOD RESP DISTRESS. REMAINS ON OPTIFLOW AND BIPAP PRN. USING URINAL. SLOW PROGRESS TOWARD POC GOALS.
[2020-04-29] VITALS (15 sets, daily range): BP systolic 91–135; BP diastolic 58–89
[2020-04-29 06:12] LABS: CALCIUM 8.3 mg/dL (8.5-10.1); CREATININE 1.1 mg/dL (0.7-1.3); POTASSIUM 4.3 mmol/L (3.5-5.1)
--- NOTE | 2020-04-29 15:03 | NUR ---
SW reviewed chart and spoke with nursing and attending physician. Pt remains in Enhanced Isolation due to COVID-19. Pt is afebrile and requiring bipap/optiflow support. Pt is on IV lasix and IV steroids. Pt has order to transfer to ICU when a bed is available. Pt's updated. SW is following to assist as needed with discharge planning.
--- NOTE | 2020-04-29 16:37 | NUR ---
PATIENT CONT ON OPTI RETA AT THIS TIME. RESPRIATONS ARE NON LABORED. HE DENIES PAIN. PLEASANT WITH CARES. WILL BE MOVED TO ICU FOR CLOSER OBSERVATION. WILL CONT WITH PLAN OF CARE.
--- NOTE | 2020-04-29 20:40 | NUR ---
2039 - SPOKE WITH (ROCAEL). UPDATED ON PT CONDITION, NEW ROOM NUMBER IN ICU. WAS EDUCATED ON SECURITY CODE AND VISITING POLICY. ALL QUESTIONS ANSWERED AT THIS TIME.
[2020-04-29 20:51] LABS: HEMATOCRIT 39.2 % (42.0-52.0); HEMOGLOBIN 12.9 gm/dL (14.0-18.0); MCH 31.8 pg (26.0-34.0); MCHC 32.8 g/dL (28.0-37.0); MCV 96.9 fL (80.0-100.0); RBC 4.05 mil/uL (4.50-6.00); WBC 12.3 thou/uL (4.0-11.0)
[2020-04-29 21:06] LABS: CALCIUM 8.6 mg/dL (8.5-10.1); POTASSIUM 4.3 mmol/L (3.5-5.1)
[2020-04-29 21:37] LABS: BE(vivo) 8.5 mmol/L (-2 to +3); HCO3 32.4 mmol/L (22.0-26.0); PCO2 41.8 mmHg (35.0-45.0); PO2 84.4 mmHg (80.0-100.0); pH 7.507 (7.360-7.450); sO2 97.1 % (92.0-98.0)
--- NOTE | 2020-04-29 23:45 | NUR ---
PT TRANSFERRED FROM TO ICU ROOM 237 AT 1950. PLACED ON MONITOR, TEMP/WEIGHT/B.S. OBTAINED. ON BIPAP AT 100% FIO2. NOTIFIED DR. MARS OF PT'S ARRIVAL TO UNIT, OBTAINED ORDERS FOR LABS AND MARSHALL, CONSULT CALLED TO DR. CARPENTER FOR I.D. 14 FR COUDET PLACED TO DEP DRAINAGE.
[2020-04-30] VITALS (83 sets, daily range): BP systolic 88–130; BP diastolic 51–75
[2020-04-30 05:31] LABS: HEMATOCRIT 38.2 % (42.0-52.0); HEMOGLOBIN 12.6 gm/dL (14.0-18.0); MCH 32.2 pg (26.0-34.0); MCV 97.4 fL (80.0-100.0); RBC 3.93 mil/uL (4.50-6.00); WBC 10.5 thou/uL (4.0-11.0)
[2020-04-30 06:14] LABS: CALCIUM 8.1 mg/dL (8.5-10.1); POTASSIUM 4.7 mmol/L (3.5-5.1)
--- NOTE | 2020-04-30 10:00 | NUR ---
ON-GOING ASSESSMENT: PT TRANSFERRED DOWN TO ICU YESTERDAY FROM 3W. PT IS IN ENHANCED ISOLATION DUE TO COVID 19 AND IS ON BIPAP AND REQUIRING FI02 AT 100 PERCENT. PT REMAINS ON IV LASIX AND IV STEROIDS. CM WILL CONTINUE TO FOLLOW TO ASSIST NEEDED.
--- NOTE | 2020-04-30 10:22 | NUR ---
SPOKE WITH PATIENT'S SPOUSE, ROCAEL, FROM [phone]. SHE WAS UPDATED AND EDUCATED ON PATIENT'S CONDITION AND PLAN OF CARE.
[2020-05-01] VITALS (76 sets, daily range): BP systolic 79–117; BP diastolic 40–73
[2020-05-01 04:43] LABS: ALBUMIN 1.8 g/dL (3.4-5.0); CALCIUM 8.2 mg/dL (8.5-10.1); CREATININE 0.9 mg/dL (0.7-1.3); POTASSIUM 4.7 mmol/L (3.5-5.1); TOTAL BILIRUBIN 0.6 mg/dL (0.2-1.0); TOTAL PROTEIN 5.6 g/dL (6.4-8.2)
[2020-05-01 04:44] LABS: FIBRINOGEN 389.2 mg/dL (210-360); INR 1.1; PROTIME 10.9 Seconds (9.3-11.4)
[2020-05-01 04:46] LABS: ABSOLUTE NEUTROPHILS 8.2 thou/uL (1.4-8.2); BASOPHILS 0.3 % (0.0-2.0); EOSINOPHILS 0.1 % (0.0-3.0); HEMATOCRIT 38.9 % (42.0-52.0); HEMOGLOBIN 12.8 gm/dL (14.0-18.0); LYMPHOCYTES 2.1 % (24.0-44.0); MCH 32.2 pg (26.0-34.0); MCHC 32.9 g/dL (28.0-37.0); MCV 97.6 fL (80.0-100.0); MONOCYTES 3.4 % (1.0-8.0); PLATELET COUNT 101 thou/uL (150-400); POLYS 94.1 % (36.0-66.0); RBC 3.98 mil/uL (4.50-6.00); RDW 12.8 % (10.5-14.5); WBC 8.7 thou/uL (4.0-11.0)
--- NOTE | 2020-05-01 10:43 | NUR ---
1043 - SPOKE WITH PT FAMILY REGARDING PT'S STATUS, PT HAD REACHED OUT TO THE FAMILY MEMBER STATING THAT THERE MAY BE A POSIBILITY OF BEING INTUBATED AND CONCERNED, THE FAMILY MEMBER CALLED RN. RN STATED THAT THERE ISN'T AN ACTIVE COMMUNICATION ABOUT VENTILATOR AT THIS TIME BUT PT IS OVER BLOWING THE BIPAP MACHINE, AND IF HIGH RR IS MAINTAINED THEN THE CARETEAM WILL HAVE TO INTERVENE IF NEEDED. PT IS CURRENTLY ON RR OF 28 AT THIS TIME. FAMILY MEMBER STATED UNDERTSTANDING, RN REMINDED THAT PT IS STILL IN CRITICAL STATE, AND IF THERE ARE TALKS OF VENTILATOR USE, RN WILL BE SURE TO UPDATE THE FAMILY.
[2020-05-01 12:44] LABS: HCO3 35.8 mmol/L (22.0-26.0); PCO2 46.8 mmHg (35.0-45.0); PO2 88.2 mmHg (80.0-100.0); pH 7.501 (7.360-7.450); sO2 97.3 % (92.0-98.0)
--- NOTE | 2020-05-01 16:14 | HC ---
[facility] [place] [facility] [place] [address] CONSULTATION Name: DEONTE NAIR Room #: 237-P [facility] IN M.R.#: [id number] Admission: 04/19/20 Attend Phys: Jaron Wagoner MD Discharge: Date of : 43 Report #: [id number] THIS REPORT FOR: cc: Jaron Wagoner MD, Neal A. MD Geha,Ponce Garza MD ~ DATE OF SERVICE: 04/30/2020 INFECTIOUS DISEASE CONSULTATION REASON FOR CONSULTATION: I was asked to evaluate concerning COVID-19 infection, now respiratory failure. HISTORY OF PRESENT ILLNESS: The patient is a 75-year-old admitted with progressive weakness and shortness of breath. Diagnosed with COVID-19 after his was found positive about 2 weeks earlier. He had progressive cough, headache, shortness of breath, GI distress with diarrhea. On presentation to Emergency Room, he was hypoxic with bilateral pulmonary infiltrates. He had no prior history of pneumonia or underlying chronic lung disease. Subsequently, he has progressed from 2 liters of oxygen per nasal cannula on admission to now 100% FiO2 on BiPAP. He has had intermittent cough with minimal sputum production. No hemoptysis. No chest pain. No cardiovascular complaints. No dysrhythmia. GI issues have resolved. Good urine output. No rashes or decubiti. A 14-point review of system was negative other than what has been described above. ALLERGIES: None known. MEDICATIONS: As noted on his MAR. The patient has completed his course of remdesivir, ivermectin, azithromycin and ceftriaxone. Remains on corticosteroids. PAST MEDICAL HISTORY: Gastroesophageal reflux, hypertension, hyperlipidemia, chronic back pain, left knee arthroscopic surgery, cholecystectomy, abdominal herniorrhaphy, glaucoma, arthritis, gout, intestinal carcinoid tumors. SOCIAL HISTORY: Nonsmoker. No significant alcohol intake. FAMILY HISTORY: Negative for tuberculosis. PHYSICAL EXAMINATION: VITAL SIGNS: He was afebrile and hemodynamically stable. GENERAL: He was alert and cooperative, on BiPAP. [address] [address] CONSULTATION Name: DEONTE NAIR Room #: [address] [place] [address] [place] [facility].#: [id number] Admission: 04/19/20 Attend Phys: Jaron Wagoner MD Discharge: Date of : 43 Report #: [id number] SKIN: Without rash or decubitus. No palpable adenopathy. HEENT: Eyes without scleral icterus. NECK: Supple. LUNGS: Coarse breath sounds posteriorly without consolidation. HEART: Regular, without murmur, gallop or rub. ABDOMEN: Soft, nontender. No hepatosplenomegaly or mass. GENITOURINARY: External genitalia without mass or lesion. RECTAL: Not performed. EXTREMITIES: Without clubbing, cyanosis or edema. BACK: Nontender. NEUROLOGIC: Mood without anxiety or depression. Cranial nerves intact and able to move upper and lower extremities symmetrically and within normal limits. Sensation to touch was within normal limits in upper and lower extremities. LABORATORY STUDIES: Reviewed. MICROBIOLOGY: Reviewed. IMAGING: Chest x-ray reviewed. IMPRESSION: 1. SARS-CoV-2 with respiratory failure. No other organisms identified at this point. 2. Hypertension. 3. Degenerative arthritis and gout stable. RECOMMENDATIONS: We will obtain cultures of sputum, check inflammatory markers. Continue corticosteroids. We will check IL-6 level and consider Actemra if no improvement with increased corticosteroids. Restart antibiotic therapy, pending cultures. <ELECTRONICALLY SIGNED> By: Ponce Sosa MD 05/01/20 1614 27 31 Ponce Sosa MD /nt
[2020-05-02] VITALS (70 sets, daily range): BP systolic 66–155; BP diastolic 36–104
--- NOTE | 2020-05-02 13:10 | NUR ---
DR PARNELL IN TO DISCUSS POC INCLUDING INTUBATION WITH PATIENT. PATIENT IS IN AGREEMENT WITH POC. PATIENT INTUBATED AT [address] PARNELL WITH 8.0 ETT AFTER SEDATION GIVEN FOR INTUBATION. PROPOFOL STARTED AND TITRATED. OGT INSERTED. VS MONITORERED AND FENTANYL AND LEVOPHED STARTED. PATIENT TOLERATED PROCEDURE WITHOUT INCIDENT.
--- NOTE | 2020-05-02 13:30 | NUR ---
RIJ CENTRAL LINE INSERTED VIA IV TEAM WITHOUT INCIDENT, PCXR DONE AT BEDSIDE FOR PLACEMENT.
--- NOTE | 2020-05-02 13:51 | NUR ---
CONSULTED TO PLACE A CENTRAL LINE POST INTUBATION. ORDER AND CONSENT NOTED. A #6F TRIPLE LUMEN CENTRAL LINE WAS PLACED PER HOSPITAL POLICY AFTER A BEDSIDE TIMEOUT WAS COMPLETED. THE 25CM LINE ADVANCED WITHOUT DIFFICULTY TO 8CM EXTERNAL. A STAT CHEST XRAY SHOWING LINE IN GOOD POSITION AND RELEASED FOR USE
[2020-05-02 15:23] LABS: BE(vivo) 9.6 mmol/L (-2 to +3); HCO3 36.7 mmol/L (22.0-26.0); PCO2 59.4 mmHg (35.0-45.0); PO2 135.4 mmHg (80.0-100.0); pH 7.409 (7.360-7.450); sO2 98.7 % (92.0-98.0)
[2020-05-03] VITALS (41 sets, daily range): BP systolic 80–117; BP diastolic 50–63
--- NOTE | 2020-05-03 07:31 | EKG ---
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 05/03/20 0731 1241 1241 Drake Saez MD, [facility] /EPI
--- NOTE | 2020-05-03 08:17 | NUR ---
Nutrition status change. Now intubated 05/02.
[2020-05-03 09:03] LABS: URINE BILIRUBIN NEGATIVE (Negative); URINE BLOOD TRACE (Negative); URINE CLARITY CLEAR; URINE COLOR YELLOW; URINE GLUCOSE-RANDOM* NEGATIVE (Negative); URINE KETONES NEGATIVE (Negative); URINE LEUKOCYTES-REFLEX NEGATIVE (Negative); URINE NITRITE-REFLEX NEGATIVE (Negative); URINE PROTEIN (DIPSTICK) NEGATIVE (Negative); URINE SPECIFIC GRAVITY 1.015 (1.005-1.035); URINE UROBILINOGEN 0.2 E.U./dl (0.2-1.0)
--- NOTE | 2020-05-03 11:07 | NUR ---
73 year old male presenting to the ED c/o chest tightness. Pt states he was awoken at 0400 the morning of ED presentation by a chest "pressure". Pt rates initial pain as 4-5/10. Pain worsens with exertion. Pt states he was diaphoretic and SOA. Patient was admitted by Hospitalist Dr. Dalal with Spontaneous Right sided Pneumothorax and is now s/p chest tube, HTN, HLP. COVID Negative per PCR testing on 05-02-20. Currently patient remains at greater than 93% 02 sats on 2 liters per NC. On 05-03-20 pulmonary has been consulted. The patient is documented in the medical record as A&) x4. Patient lists his as next of kin and contact of Ingrid Cramer at [phone] or [phone]. Spoke with patient and introduced role of CM and patient informed me he has been doing out patient rehab at [facility] in [facility] prior to admission. Patient states this is a new rehab not just a gym. Patient now believes he was moving furniture and believes that maybe that is how he may have injured himself. Will await evaluations and medical workup as CM will follow for discharge needs.
--- NOTE | 2020-05-03 13:21 | NUR ---
ON-GOING ASSESSMENT: CM REVIEWED CHART. PT WAS INTUBATED YESTERDAY AND IS ON THE VENT WITH 100 PERCENT FI02. PT REMAINS IN ENHANCED ISOLATION DUE TO COVID 19. CM SPOKE WITH AND SHE IS UPDATED AND HAS CONTACT NUMBER FOR THE UNIT IN ORDER TO CONTACT FOR UPDATES. CM WILL CONTINUE TO FOLLOW TO ASSIST NEEDED.
--- NOTE | 2020-05-03 15:06 | NUR ---
ASSUMED CARE OF PT AT 0700 DIANDRA AT BEDSIDE AT 0730 AND HE ORDERED TUBE FEEDING CONSULT, A URINE CULTURE, VERSED AND NSDionne CARPETNER AT BEDSIDE AT 1505 AND ORDERED A SPUTUM SAMPLE.
[2020-05-04] VITALS (48 sets, daily range): BP systolic 72–163; BP diastolic 46–133
[2020-05-04 05:13] LABS: BE(vivo) 6.4 mmol/L (-2 to +3); HCO3 33.1 mmol/L (22.0-26.0); PCO2 56.4 mmHg (35.0-45.0); PO2 91.7 mmHg (80.0-100.0); pH 7.386 (7.360-7.450); sO2 96.8 % (92.0-98.0)
[2020-05-04 05:45] LABS: MCH 31.7 pg (26.0-34.0); MCHC 32.4 g/dL (28.0-37.0); MCV 97.7 fL (80.0-100.0); PLATELET COUNT 124 thou/uL (150-400); RBC 3.79 mil/uL (4.50-6.00); RDW 12.6 % (10.5-14.5)
[2020-05-04 06:07] LABS: FIBRINOGEN 366.5 mg/dL (210-360); PROTIME 10.6 Seconds (9.3-11.4)
[2020-05-04 06:35] LABS: ALBUMIN 1.8 g/dL (3.4-5.0); CALCIUM 7.8 mg/dL (8.5-10.1); CREATININE 0.9 mg/dL (0.7-1.3); TOTAL BILIRUBIN 0.7 mg/dL (0.2-1.0); TOTAL PROTEIN 5.6 g/dL (6.4-8.2)
[2020-05-04 08:47] LABS: ABSOLUTE NEUTROPHILS 17.3 thou/uL (1.4-8.2); METAMYELOCYTES 1 %
[2020-05-04 08:48] LABS: ANISOCYTOSIS SLIGHT
--- NOTE | 2020-05-04 15:39 | NUR ---
PT INTUBATED AND SEDATED, VENT SETTINGS UNCHANGED. NO SBT/CPAP. NO SEDATION VACATION, BUT PT DOES OPEN EYES TO VERBAL STIMULI AND FOLLOWS SIMPLE COMMANDS. DOPAMINE, FENTYNAL, VERSED, AND LEVOPHED GTT'S IN PLACE. PT AFEBRILE, POLYUREA TODAY, NO BM, OG TO LIS WITH BOLUS FEEDINGS DUE TO NO TUBE FEEDING PUMPS, RESIDUALS WNL. RIGHT IJ IN PLACE AND FUNCTIONING WELL. SUBQ AIR PALPATED IN RIGHT UPPER LUNG REGION. SPOKE WITH PTS THIS AM, UPDATED AND EDUCATED HER AND PT ON PT CONDITION AND POC. PT SLOWLY PROGRESSING TOWARDS POC.
[2020-05-04 16:56] LABS: CALCIUM 8.2 mg/dL (8.5-10.1); POTASSIUM 5.8 mmol/L (3.5-5.1)
[2020-05-05] VITALS (44 sets, daily range): BP systolic 93–150; BP diastolic 51–71
--- NOTE | 2020-05-05 07:04 | NUR ---
Talked to at 2143, updated on pt condition with regards to vent management, sedation and neuro. Tolerating bolus feeds with minimal residuals. Pt slowly progressing to plan of care.
[2020-05-05 07:12] LABS: CALCIUM 8.1 mg/dL (8.5-10.1); CREATININE 0.8 mg/dL (0.7-1.3); POTASSIUM 5.9 mmol/L (3.5-5.1)
[2020-05-05 14:06] LABS: HEMATOCRIT 32.7 % (42.0-52.0); HEMOGLOBIN 10.6 gm/dL (14.0-18.0); MCH 31.8 pg (26.0-34.0); MCHC 32.4 g/dL (28.0-37.0); MCV 98.1 fL (80.0-100.0); RBC 3.33 mil/uL (4.50-6.00); RDW 12.7 % (10.5-14.5); WBC 14.9 thou/uL (4.0-11.0)
[2020-05-05 14:11] LABS: CREATININE 0.9 mg/dL (0.7-1.3); POTASSIUM 5.4 mmol/L (3.5-5.1)
[2020-05-05 14:58] LABS: T-SPOT.TB Negative
--- NOTE | 2020-05-05 15:01 | NUR ---
PT INTUBATED AND SEDATED. PEEP TITRATED DOWN BY RT. SEDATION VACATION THIS AM, PT WAS ABLE TO FOLLOW SIMPLE COMMANDS. LEVOPHED, DOPAMINE, VERSED, FENTYNAL GTT'S IN PLACE. 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 NO MORE SUBQ AIR ON RIGHT CHEST. PT AFEBRILE, POLYUREA, TOLERATING TUBE FEEDING BOLUS WITH RESIDUALS WNL, NO BM. PT AND HAVE BEEN UPDATED AND EDUCATED ON PT CONDITION AND POC. PT SLOWLY PROGRESSING TOWARDS POC.
--- NOTE | 2020-05-05 15:08 | NUR ---
PT INTUBATED AND SEDATED, VENT SETTINGS UNCHANGED. SEDATION VACATION WAS DONE THIS AM BUT PT IS NOT AROUSABLE. OFF OF SEDATION THE PT GETS TACHYPNEIC. LEVOPHED, PROPOFOL, HEPARIN GTT'S INFUSING. CT OF CHEST TODAY. PT HAS COFFEE GROUND EMESIS IN OGT, PROVIDER AWARE. PT AFEBRILE, ADEQUATE UOP, NO BM, NO NUTRITION ORDERED. CHA CULTURES SENT TO LAB. PT MOTTLING. PTS BROTHER HAS BEEN SPOKEN TO TWICE TODAY, HE AND THE PT HAVE BEEN UPDATED AND EDUCATED ON PT CONDITION AND POC. PT MAY BE CHANGED TO PALLIATIVE CARE SOON. PT NOT PROGRESSING TOWARDS POC.
[2020-05-06] VITALS (46 sets, daily range): BP systolic 80–172; BP diastolic 43–71
[2020-05-06 03:58] LABS: BE(vivo) 7.8 mmol/L (-2 to +3); HCO3 34.8 mmol/L (22.0-26.0); PO2 91.2 mmHg (80.0-100.0); pH 7.374 (7.360-7.450); sO2 96.6 % (92.0-98.0)
[2020-05-06 05:57] LABS: HEMATOCRIT 30.9 % (42.0-52.0); HEMOGLOBIN 10.2 gm/dL (14.0-18.0); MCH 32.3 pg (26.0-34.0); MCHC 32.9 g/dL (28.0-37.0); MCV 98.2 fL (80.0-100.0); PLATELET COUNT 79 thou/uL (150-400); RBC 3.15 mil/uL (4.50-6.00); RDW 12.4 % (10.5-14.5); WBC 12.9 thou/uL (4.0-11.0)
[2020-05-06 06:22] LABS: ALBUMIN 1.8 g/dL (3.4-5.0); CALCIUM 8.1 mg/dL (8.5-10.1); CREATININE 0.7 mg/dL (0.7-1.3); POTASSIUM 5.8 mmol/L (3.5-5.1); TOTAL BILIRUBIN 0.6 mg/dL (0.2-1.0); TOTAL PROTEIN 5.6 g/dL (6.4-8.2)
[2020-05-06 09:18] LABS: ABSOLUTE NEUTROPHILS 11.9 thou/uL (1.4-8.2)
[2020-05-06 09:19] LABS: PLATELET ESTIMATE DECREASED
--- NOTE | 2020-05-06 09:56 | NUR ---
Nutrition: Now that propofol is D/C, REC increase Vital HP to 6 cartons daily. However, currently with hyperkalemia. If K+ levels do not improve, may require change to Nepro formula 4 cartons daily and if IVFs can D/C would rec add beneprotein powder in water flushes 250 mL q 6 hrs.
--- NOTE | 2020-05-06 15:55 | NUR ---
Patient progressing towards plan of care as evidenced by decreased PEEP and tolerating with o2 saturation >95%. He opens his eyes, does not follow commands. Tolerating tube feeding at this time. Plan of care is to continue to assess weaning on ventilator and need for sedation for ventilator management.
--- NOTE | 2020-05-06 19:19 | NUR ---
7690- Nurse updated patients in regards to patient current status, treatments, and plan of care. Her questions were answered.
[2020-05-07] VITALS (46 sets, daily range): BP systolic 88–156; BP diastolic 47–77
[2020-05-07 15:40] LABS: CALCIUM 8.6 mg/dL (8.5-10.1); CREATININE 0.8 mg/dL (0.7-1.3); POTASSIUM 5.3 mmol/L (3.5-5.1)
--- NOTE | 2020-05-07 19:44 | NUR ---
PT UPDATED ON PT CONDITION. HER QUESTIONS WERE ANSWERED. CPAP TRIAL ATTEMPTED ON THE PT. PT DESAT TO 88%. PT FAILED CPAP TRIAL TODAY.
[2020-05-08] VITALS (51 sets, daily range): BP systolic 72–150; BP diastolic 37–118
[2020-05-08 05:33] LABS: HEMATOCRIT 28.8 % (42.0-52.0); HEMOGLOBIN 9.6 gm/dL (14.0-18.0); MCH 32.3 pg (26.0-34.0); MCHC 33.3 g/dL (28.0-37.0); MCV 96.9 fL (80.0-100.0); RBC 2.97 mil/uL (4.50-6.00); RDW 12.3 % (10.5-14.5); WBC 10.8 thou/uL (4.0-11.0)
[2020-05-08 05:35] LABS: CALCIUM 8.5 mg/dL (8.5-10.1); CREATININE 0.8 mg/dL (0.7-1.3); POTASSIUM 5.3 mmol/L (3.5-5.1)
[2020-05-08 13:47] LABS: HEMATOCRIT 30.3 % (42.0-52.0); MCHC 32.9 g/dL (28.0-37.0); MCV 97.4 fL (80.0-100.0); RBC 3.11 mil/uL (4.50-6.00); RDW 12.5 % (10.5-14.5); WBC 13.2 thou/uL (4.0-11.0)
[2020-05-08 14:02] LABS: BE(vivo) 7.2 mmol/L (-2 to +3); HCO3 32.4 mmol/L (22.0-26.0); PCO2 47.9 mmHg (35.0-45.0); PO2 79.9 mmHg (80.0-100.0); pH 7.448 (7.360-7.450); sO2 96.1 % (92.0-98.0)
--- NOTE | 2020-05-08 15:23 | NUR ---
PT INTUBATED AND SEDATED. PASSED CPAP TRIAL THIS AM, FROM [phone]. SEDATION VACATION TOLERATED WELL, PT ABLE TO FOLLOW SIMPLE COMMANDS. AROUND 1300 PT BECAME DIAPHORETIC, TACHYCARDIC, TACHYPNEIC. PROVIDER CALLED AND CXR, ABG, CBC WERE ORDERED. LEVOPHED GTT WAS STARTED AND DOPAMINE WAS TURNED OFF DUE TO TACHYCARDIA AND HYPOTENSION. AGGRESSIVE BOWEL MANAGEMNT WAS STARTED, ENEMA AND MAG-CITRATE WAS GIVEN TO PROMOTE BM. PT HAD A LOW GRADE FEVER, POLYUREA, TOLERATING TUBE FEEDS WITH RESIDUALS WNL. PT AND SPOUSE HAVE BEEN UPDATED AND EDUCATED ON PT CONDITION AND POC. PT SLOWLY PROGRESSING TOWARDS POC.
[2020-05-09] VITALS (44 sets, daily range): BP systolic 88–134; BP diastolic 49–73
[2020-05-09 04:44] LABS: HEMATOCRIT 27.4 % (42.0-52.0); HEMOGLOBIN 8.9 gm/dL (14.0-18.0); MCH 31.8 pg (26.0-34.0); MCHC 32.7 g/dL (28.0-37.0); MCV 97.5 fL (80.0-100.0); RBC 2.81 mil/uL (4.50-6.00); RDW 12.6 % (10.5-14.5); WBC 21.6 thou/uL (4.0-11.0)
[2020-05-09 05:16] LABS: CALCIUM 8.2 mg/dL (8.5-10.1); CREATININE 0.8 mg/dL (0.7-1.3); POTASSIUM 5.6 mmol/L (3.5-5.1)
[2020-05-09 06:22] LABS: ALBUMIN 1.9 g/dL (3.4-5.0); DIRECT BILIRUBIN 0.2 mg/dL (<0.1-0.2); TOTAL BILIRUBIN 0.6 mg/dL (0.2-1.0); TOTAL PROTEIN 5.5 g/dL (6.4-8.2)
[2020-05-09 07:42] LABS: URINE BILIRUBIN NEGATIVE (Negative); URINE BLOOD 3+ (Negative); URINE COLOR YELLOW; URINE GLUCOSE-RANDOM* NEGATIVE (Negative); URINE KETONES NEGATIVE (Negative); URINE LEUKOCYTES-REFLEX NEGATIVE (Negative); URINE NITRITE-REFLEX NEGATIVE (Negative); URINE PROTEIN (DIPSTICK) NEGATIVE (Negative)
[2020-05-09 07:48] LABS: URINE CLARITY HAZY
[2020-05-09 08:08] LABS: CASTS None Seen /LPF (None Seen); CRYSTALS None Seen /LPF (None Seen); SQUAMOUS None Seen /LPF (0-3); URINE RBC >20 Many /HPF (0-2); URINE WBC-REFLEX 0-5 Rare /HPF (0-5)
--- NOTE | 2020-05-09 14:45 | NUR ---
PT INTUBATED AND SEDATED. FIO2 TITRATED DOWN BY RT. PT CONTINUES TO BE ON LEVOPHED GTT FOR HYPOTENSION. DOPAMINE IS OFF. PT FOLLOWS SIMPLE COMMANDS, AFEBRILE, POLYUREA, NO BM (AGGRESSIVE BOWEL MANAGEMENT BEING DONE), TOLERATING TUBE FEEDS AT GOAL WITH RESIDUALS WNL. PT AND FAMILY HAVE BEEN UPDATED AND EDUCATED ON PT CONDITION AND POC. PT SLOWLY PROGRESSING TOWARDS POC.
[2020-05-10] VITALS (80 sets, daily range): BP systolic 66–144; BP diastolic 34–80
[2020-05-10 04:25] LABS: HEMOGLOBIN 8.6 gm/dL (14.0-18.0); MCH 32.1 pg (26.0-34.0); MCV 97.3 fL (80.0-100.0); RBC 2.68 mil/uL (4.50-6.00); RDW 13.1 % (10.5-14.5); WBC 23.6 thou/uL (4.0-11.0)
[2020-05-10 04:47] LABS: CALCIUM 8.4 mg/dL (8.5-10.1); CREATININE 0.8 mg/dL (0.7-1.3); POTASSIUM 5.4 mmol/L (3.5-5.1)
--- NOTE | 2020-05-10 07:23 | EKG ---
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: CODIE : 1945 Requested By: Jaron Wagoner Order Number: [id number] MD: Duncan Schneider Measurements Intervals [place] Rate: 85 P: 25 IA: 164 QRS: -19 QRSD: 104 T: 49 QT: 362 QTc: 431 Interpretive Statements Sinus rhythm Probable left ventricular hypertrophy Compared to ECG 05/01/2020 12:41:29 Left ventricular hypertrophy now present Poor R-wave progression no longer present T-wave abnormality no longer present Electronically Signed On 05-10-2020 7:23:47 MOLD FORMS BUILDER by Duncan Schneider [email or web address] <ELECTRONICALLY SIGNED> By: Duncan Schneider MD, [facility] 05/10/20 0723 0943 0943 Duncan Schneider MD, [facility] /EPI
--- NOTE | 2020-05-10 10:08 | NUR ---
ASSUMED CARE AT 0700. SEDATION VACATION STARTED AT 0752. PATIENT TOLERATING IT WELL SO FAR EVIDENCED BY NO SIGNS OF RESTLESSNESS, TACHYPNEA, OR CHANGE IN OXYGENATION STATUS.
--- NOTE | 2020-05-10 11:18 | NUR ---
Pt K+ level persistantly elevated. Recommend change tube feed formula to Nepro at 45ml/hr. Since IVF discontinued, start water flush of 250ml every 6hr and mix with 1 packet of beneprotein.
--- NOTE | 2020-05-10 13:49 | NUR ---
ON-GOING ASSESSMENT: CM REVIEWED CHART. PT REMAINS ON THE VENT, FI02 60 PERCENT. PTS WBC IS CONTINUING TO ELEVATE. PT IS ALSO HYPOTENSIVE. CM WILL CONTINUE TO FOLLOW TO ASSIST NEEDED.
--- NOTE | 2020-05-10 18:22 | NUR ---
PATIENT'S , ROCAEL, WAS SPOKEN TO FROM [phone] OVER THE PHONE AND SHE WAS UPDATED AND EDUCATED ON PATIENT CONDITION AND PLAN OF CARE.
[2020-05-11] VITALS (77 sets, daily range): BP systolic 71–124; BP diastolic 38–72
--- NOTE | 2020-05-11 04:20 | NUR ---
PATIENT LIGHTLY SEDATED/INTUBATED. OPENS EYES TO VOICE, PERRL, VSS WITH LEVOPHED GTT @ 18MCG/MIN. L/S CRACKLES/COARSE, DIMINISHED BASES. BEGINING OF SHIFT PATIENT NOTED TO BE FOAMING AT THE MOUTH. CUFF PRESSURE CHECKED, NO AIR LEAK NOTED ORAL CARE COMPLETED AND RT NOTIFIED. 2030-GOLYTELY ADMINISTRATION STARTED, TUBE FEEDING ON HOLD. 0012- LEVOPHED INCREASED TO KEEP MAP>65 0228- PATIENT WENT INTO AFIB WITH RVR, CATRACHITO HONG NOTIFIED, NEW ORDERS FOR START EKG, AND DILTIAZEM 10MG IVP GIVEN AND IMPLEMENTED.PT'S RHYTHM NOW NSR WITH BBB. 0300- ONE LITER GOLYTELY GIVEN, PATIENT'S STOMACH APPEARS VERY DISTENDED AND FIRM ON LEFT LOW QUAD. NO BM AT THIS TIME. WILL CONTINUE POC. 0345- BLADDER SCAN- 50ML. 0450- OPEN AREA ON THE SCROTUM NOTED TO BE BLEEDING, PICTURES TAKEN, PROTECTIVE CREAME APPLIED, AND ABD PADS APPLIED.
[2020-05-11 05:50] LABS: HEMATOCRIT 25.1 % (42.0-52.0); HEMOGLOBIN 8.3 gm/dL (14.0-18.0); MCH 32.3 pg (26.0-34.0); MCHC 32.9 g/dL (28.0-37.0); MCV 98.1 fL (80.0-100.0); RBC 2.56 mil/uL (4.50-6.00); WBC 28.7 thou/uL (4.0-11.0)
[2020-05-11 06:01] LABS: CALCIUM 8.8 mg/dL (8.5-10.1); CREATININE 0.7 mg/dL (0.7-1.3); POTASSIUM 5.3 mmol/L (3.5-5.1)
--- NOTE | 2020-05-11 08:29 | EKG ---
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: Chris Wang : 1945 Requested By: Jaron Wagoner Order Number: [id number] MD: Duncan Schneider Measurements Intervals [place] Rate: 148 P: [place]: QRS: -27 QRSD: 99 T: 127 QT: 287 QTc: 451 Interpretive Statements Atrial fibrillation with rapid V-rate LVH with secondary repolarization abnormality Compared to ECG 05/09/2020 09:43:49 Early repolarization now present Sinus rhythm no longer present Electronically Signed On 05-11-2020 8:29:25 LABEL CODER by Duncan Schneider [email or web address] <ELECTRONICALLY SIGNED> By: Duncan Schneider MD, [facility] 05/11/2029 0254 0254 Duncan Schneider MD, [facility] /EPI
--- NOTE | 2020-05-11 15:31 | 2DMMODE ---
[facility] [place] [address] 2 D/M-MODE ECHOCARDIOGRAM Name: DEONTE NAIR Room #: 237-P ADM IN M.R.#: [id number] Admission: 04/19/20 Attend Phys: Jaron Wagoner MD Discharge: Date of : 43 Report #: [id number] THIS REPORT FOR: cc: Jaron Wagoner MD, Neal A. MD Lammoglia, Francisco J. MD ~ APPROVED REPORT Study performed: 05/11/2020 14:34:01 EXAM: Comprehensive 2D, Doppler, and color-flow Echocardiogram Patient Location: ICU Room #: [facility] Status: routine BSA: 2.17 HR: 78 bpm BP: 97/60 mmHg Rhythm: NSR Other Information Study Quality: Adequate Technically limited study due to heavy lung artifact. In ICU on vent. Indications Hypotension, murmur. Hx: COVID-19, HTN, HLP. 2D Dimensions IVSd: 14.28 (7-11mm) LVOT Diam: 20.34 (18-24mm) LVDd: 48.31 mm PWd: 14.12 (7-11mm) Ascending Ao: 37.52 (22-36mm) LVDs: 29.98 (25-40mm) Aortic Root: 39.14 mm Volumes Left Atrial Volume (Systole) Single Plane 4CH: 49.44 mL Aortic Valve AoV Peak Randall.: 2.33 m/s AO Peak Gr.: 21.75 mmHg Mitral Valve [facility] [address] [place] [address] 2 D/M-MODE ECHOCARDIOGRAM Name: DEONTE NAIR Room #: 237-P [facility] IN [facility].#: [id number] Admission: 04/19/20 Attend Phys: Jaron Wagoner, Discharge: Date of : 43 Report #: [id number] E/A Ratio: 0.8 MV Decel. Time: 341.73 ms MV E Max Randall.: 0.68 m/s MV A Randall.: 0.86 m/s MV PHT: 99.10 ms Pulmonary Valve PV Peak Randall.: 1.24 m/s PV Peak Gr.: 6.15 mmHg Left Ventricle The left ventricle is normal size. There is normal LV segmental wall motion. Mild to moderate concentric left ventricular hypertrophy. Systolic motion of the mitral chordae causing a high LV peak gradient of 83mmHg. Left ventricular systolic function is hyperdynamic. LVEF is 70%. Mild diastolic dysfunction is present (impaired relaxation pattern). Right Ventricle The right ventricle is normal size. The right ventricular systolic function is normal. Atria Left atrium is mildly dilated. The right atrium size is normal. Aortic Valve The aortic valve is normal in structure. No aortic regurgitation is present. There is no aortic valvular stenosis. Mitral Valve The mitral valve is normal in structure. Mild to moderate mitral regurgitation. Tricuspid Valve The tricuspid valve is normal in structure. There is no tricuspid valve regurgitation noted. Unable to assess PA pressure. Pulmonic Valve Pulmonic valve is not well visualized. Great Vessels Aortic root is mildly dilated. The ascending aorta is borderline dilated. IVC is dilated and collapses >50% with inspiration. Pericardium [facility] [address] [place] [address] 2 D/M-MODE ECHOCARDIOGRAM Name: DEONTE NAIR Room #: 237-P [facility] IN [facility]#: [id number] Admission: 04/19/20 Attend Phys: Jaron Wagoner, Discharge: Date of : 43 Report #: [id number] There is no pericardial effusion. <Conclusion> The left ventricle is normal size. LVEF is 70%. Left atrium is mildly dilated. The aortic valve is normal in structure. The mitral valve is normal in structure. Mild to moderate mitral regurgitation. The tricuspid valve is normal in structure. Pulmonic valve is not well visualized. Aortic root is at upper limits of normal. The ascending aorta is upper limits of normal. There is no pericardial effusion. <ELECTRONICALLY SIGNED> By: Baldev Grant MD 05/11/20 1531 1531 1531 Baldev Grant MD /INF
[2020-05-11 16:50] LABS: CALCIUM 8.7 mg/dL (8.5-10.1); POTASSIUM 4.8 mmol/L (3.5-5.1)
--- NOTE | 2020-05-11 18:31 | NUR ---
PT SEEN BY / TODAY PT NOT PROGRESSING TOWARDS DISCHARGE, NO CHANGE IN VENTILATOR SETTING. KUB ORDRED BY , NO SIGNIFICANT FINDINGS. PALPABLE FIRMNESS L QUADRANTS OF ABDOMEN. SUPPOSITORY ORDERED, SUPPOSITORY GIVEN, GOLYTELY GIVEN INTERMITTENTLY THROUGHOUT THE DAY, PER HE DID NOT ORDER THIS MEDICATION. PT'S BP MAP AROUND HIGH 50s TO LOW 60s THROUGHOUT THE DAY. VASOPRESSIN/EPINEPHRINE ORDERED JUST IN CASE AND READY TO USE. CURRENTLY RECEIVING VERSED/FENTANYL FOR SEDATION. PT IS AROUSABLE OPENES EYES BYSELF SPONTANEOUSLY. LEVOX4 HAD TO BE INCREASED THROUGHOUT THE SHIFT DUE TO LOWERING OF THE MAP. STARTED AT 12 CURRENTLY AT 23. LASIX WAS GIVEN, 800CC OUT. PT'S DAUGHTER CALLED FOR UPDATES, RN UPDATED THE FAMILY MEMBER THE CODE WAS PROVIDED BY HER. RN SPOKE OUT THE CURRENT CLINICAL PICTURE, PT'S REP ASKED ABOUT THE BM, SMEAR WAS PRESENT BUT NOTHING SIGNIFICANT, HOPING THAT WOULD CHANGE DURING HAND SEWER. TUBE FEEDING NOT RE-INITATED DUE TO LACK OF GI MOBILITY. PT'S OVERALL PRESENTATION IS PALLOR. 2L FLUID BOLUS GIVEN PER 'S ORDERS. AT THIS TIME THE BP IS BETTER. RN SIGNING OFF
[2020-05-12] VITALS (94 sets, daily range): BP systolic 61–115; BP diastolic 28–64
[2020-05-12 05:45] LABS: HEMATOCRIT 21.1 % (42.0-52.0)
[2020-05-12 05:47] LABS: MCH 32.6 pg (26.0-34.0); MCV 98.9 fL (80.0-100.0); PLATELET COUNT 154 thou/uL (150-400); RBC 2.14 mil/uL (4.50-6.00); RDW 13.6 % (10.5-14.5); WBC 29.4 thou/uL (4.0-11.0)
[2020-05-12 05:58] LABS: ALBUMIN 1.9 g/dL (3.4-5.0); CREATININE 0.9 mg/dL (0.7-1.3); POTASSIUM 4.6 mmol/L (3.5-5.1); TOTAL BILIRUBIN 0.8 mg/dL (0.2-1.0); TOTAL PROTEIN 5.2 g/dL (6.4-8.2)
[2020-05-12 08:24] LABS: ABSOLUTE NEUTROPHILS 25.3 thou/uL (1.4-8.2); METAMYELOCYTES 3 %; MYELOCYTES 4 %; NUCLEATED RBCS 2 /100WBC
[2020-05-12 08:25] LABS: ANISOCYTOSIS 1+; POLYCHROMASIA OCCASIONAL
--- NOTE | 2020-05-12 11:14 | NUR ---
SPOKE WITH PATIENT'S , ROCAEL, FROM [phone] AND SHE WAS UPDATED AND EDUCATED ON THE PATIENT'S CONDITION AND PLAN OF CARE.
[2020-05-12 17:12] LABS: HCO3 29.1 mmol/L (22.0-26.0); PCO2 40.3 mmHg (35.0-45.0); PO2 114.4 mmHg (80.0-100.0); pH 7.476 (7.360-7.450); sO2 98.4 % (92.0-98.0)
[2020-05-12 22:31] LABS: HEMOGLOBIN 6.9 gm/dL (14.0-18.0)
[2020-05-12 22:33] LABS: HEMATOCRIT 21.3 % (42.0-52.0); MCH 31.3 pg (26.0-34.0); MCHC 32.5 g/dL (28.0-37.0); MCV 96.2 fL (80.0-100.0); RBC 2.22 mil/uL (4.50-6.00); RDW 15.3 % (10.5-14.5)
[2020-05-12 22:34] LABS: WBC 39.6 thou/uL (4.0-11.0)
[2020-05-12 22:38] LABS: CALCIUM 7.7 mg/dL (8.5-10.1); CREATININE 1.7 mg/dL (0.7-1.3); POTASSIUM 5.4 mmol/L (3.5-5.1)
[2020-05-13] VITALS (113 sets, daily range): BP systolic 48–160; BP diastolic 16–104
[2020-05-13 01:47] LABS: BE(vivo) -3.9 mmol/L (-2 to +3); PCO2 37.1 mmHg (35.0-45.0); PO2 332.5 mmHg (80.0-100.0); sO2 99.7 % (92.0-98.0)
--- NOTE | 2020-05-13 07:33 | NUR ---
SPOKE WITH DR MARS FREQUENTLY OVERNIGHT. ORDERS FOR 4 L BOLUS OF NS AND 2 UNITS PRBCS. HGB IMPROVED. BP IMPROVED. URINE OUTPUT DROPPED AFTER BOLUS OF NS.
[2020-05-13 09:03] LABS: HEMATOCRIT 21.3 % (42.0-52.0); HEMOGLOBIN 6.9 gm/dL (14.0-18.0); MCH 31.3 pg (26.0-34.0); MCHC 32.3 g/dL (28.0-37.0); MCV 96.7 fL (80.0-100.0); RBC 2.2 mil/uL (4.50-6.00); RDW 14.5 % (10.5-14.5)
--- NOTE | 2020-05-13 09:10 | NUR ---
0778-DR. JIM IN.--VW 0815-PAGE TO RENAL FOR CONSULT PER A.S.--VW 0840-AM LABS DRAWN & SENT.--VW
[2020-05-13 09:11] LABS: WBC 46.4 thou/uL (4.0-11.0)
[2020-05-13 09:15] LABS: CALCIUM 6.8 mg/dL (8.5-10.1); CREATININE 1.9 mg/dL (0.7-1.3); POTASSIUM 5.5 mmol/L (3.5-5.1)
--- NOTE | 2020-05-13 12:38 | NUR ---
CM CONTACTED PT'S WILFE, ROCAEL, TO OFFER EMOTIONAL SUPPORT AND EMPATHETIC LISTENING. ROCAEL STATED IT IS "HARD" AND SHE IS RELYING ON HER LICHA TO GET THROUGH THIS. ROCAEL STATED THE DOCTOR TOLD HER HE WILL WORK ON GETTING TO BE ABLE TO VISIT. ROCAEL EXPRESSED APPRECIATION FOR THE CALL AND DENIES ANY QUESTIONS AT THIS TIME.
[2020-05-13 18:29] LABS: HEMOGLOBIN 8.2 gm/dL (14.0-18.0); MCV 94.8 fL (80.0-100.0)
[2020-05-13 18:32] LABS: HEMATOCRIT 25.4 % (42.0-52.0); MCH 30.5 pg (26.0-34.0); MCHC 32.1 g/dL (28.0-37.0); RBC 2.68 mil/uL (4.50-6.00); RDW 15.6 % (10.5-14.5)
[2020-05-13 18:43] LABS: WBC 54.5 thou/uL (4.0-11.0)
--- NOTE | 2020-05-13 23:30 | NUR ---
Pt care assumed at 1915. Pt is non-responsive on vent, maxed on vasopressin, epinephrine, neosynephrine, and levophed to maintain SBP >85. Pt is anuric at this time, bowel sounds absent. OG to LIS with brown, bile drainage. Monitor a-fib with RVR, rates 127-147. Unable to turn pt at this time due to unstable condition.
[2020-05-14] VITALS (9 sets, daily range): BP systolic 91–123; BP diastolic 49–101
--- NOTE | 2020-05-14 00:58 | NUR ---
PT CONVERTED TO SINUS TACH, RATES 100-106, AT APPROXIMATELY 0053. BP NOW 112/86 (97), EPINEPHRINE TITRATED DOWN TO 10 MCG/MIN. WILL CONTINUE TO TITRATE DOWN BP ALLOWS.
--- NOTE | 2020-05-14 05:02 | NUR ---
PT AT 404. NOTIFIED AT 0410 AND DOES NOT WISH TO SEE PT AT THIS TIME. [facility] CALLED PER PROTOCOL.
--- NOTE | 2020-05-14 05:33 | NUR ---
Pt had his glasses, clothing, slippers, and cell phone with tack maker in his room. Family not coming in this morning to see pt. Will send belongings with security officers when they pick up driver pt for [place] [facility]
== END 2020-05-14 04:05 | DRG 981 ==
LOC: ER 20:21 → ICU 22:09 → 3W 22:09 → EROBS 22:09 → 3W 04-21 20:36 → ICU 04-29 20:01
PROVIDERS: Emergency Medicine; Internal Medicine Pulmonary Disease; Nurse Practitioner Family; Pediatrics; Specialist; ADMIT Family Medicine; ATTEND Family Medicine
PROC: XW033E5 Introduction of Remdesivir Anti-infective into Peripheral Vein, Percutaneous Approach, New Technology Group 5 (ICD-10-PCS; principal; 2020-04-20)
PROC: 5A0945A Assistance with Respiratory Ventilation, 24-96 Consecutive Hours, High Flow/Velocity Cannula (ICD-10-PCS; 2020-04-22)
PROC: 5A09357 Assistance with Respiratory Ventilation, Less than 24 Consecutive Hours, Continuous Positive Airway Pressure (ICD-10-PCS; 2020-04-24)
PROC: 5A0945A Assistance with Respiratory Ventilation, 24-96 Consecutive Hours, High Flow/Velocity Cannula (ICD-10-PCS; 2020-04-24)
PROC: 5A0935A Assistance with Respiratory Ventilation, Less than 24 Consecutive Hours, High Flow/Velocity Cannula (ICD-10-PCS; 2020-04-27)
PROC: 5A0935A Assistance with Respiratory Ventilation, Less than 24 Consecutive Hours, High Flow/Velocity Cannula (ICD-10-PCS; 2020-04-28)
PROC: 5A09357 Assistance with Respiratory Ventilation, Less than 24 Consecutive Hours, Continuous Positive Airway Pressure (ICD-10-PCS; 2020-04-28)
PROC: 5A09457 Assistance with Respiratory Ventilation, 24-96 Consecutive Hours, Continuous Positive Airway Pressure (ICD-10-PCS; 2020-04-29)
PROC: 5A0935A Assistance with Respiratory Ventilation, Less than 24 Consecutive Hours, High Flow/Velocity Cannula (ICD-10-PCS; 2020-04-29)
PROC: B41D1ZZ Fluoroscopy of Aorta and Bilateral Lower Extremity Arteries using Low Osmolar Contrast (ICD-10-PCS; 2020-05-02)
PROC: 02HV33Z Insertion of Infusion Device into Superior Vena Cava, Percutaneous Approach (ICD-10-PCS; 2020-05-02)
PROC: 5A1955Z Respiratory Ventilation, Greater than 96 Consecutive Hours (ICD-10-PCS; 2020-05-02)
PROC: 0BH17EZ Insertion of Endotracheal Airway into Trachea, Via Natural or Artificial Opening (ICD-10-PCS; 2020-05-02)
PROC: B31L1ZZ Fluoroscopy of Intercostal and Bronchial Arteries using Low Osmolar Contrast (ICD-10-PCS; 2020-05-12)
PROC: B41B1ZZ Fluoroscopy of Other Intra-Abdominal Arteries using Low Osmolar Contrast (ICD-10-PCS; 2020-05-12)
PROC: B4191ZZ Fluoroscopy of Lumbar Arteries using Low Osmolar Contrast (ICD-10-PCS; 2020-05-12)
PROC: B41C1ZZ Fluoroscopy of Pelvic Arteries using Low Osmolar Contrast (ICD-10-PCS; 2020-05-12)
PROC: 04VJ3DZ Restriction of Left External Iliac Artery with Intraluminal Device, Percutaneous Approach (ICD-10-PCS; 2020-05-12)
PROC: 30233N1 Transfusion of Nonautologous Red Blood Cells into Peripheral Vein, Percutaneous Approach (ICD-10-PCS; 2020-05-12)
DX: U07.1 COVID-19 (principal); N17.0 Acute kidney failure with tubular necrosis; J12.82 Pneumonia due to coronavirus disease 2019; A41.9 Sepsis, unspecified organism; R65.21 Severe sepsis with septic shock; J96.21 Acute and chronic respiratory failure with hypoxia; D62 Acute posthemorrhagic anemia; R58 Hemorrhage, not elsewhere classified; I10 Essential (primary) hypertension; E78.5 Hyperlipidemia, unspecified; M10.9 Gout, unspecified; K21.9 Gastro-esophageal reflux disease without esophagitis; G89.29 Other chronic pain; R39.89 Other symptoms and signs involving the genitourinary system; G62.9 Polyneuropathy, unspecified; M47.892 Other spondylosis, cervical region; D72.823 Leukemoid reaction; D69.6 Thrombocytopenia, unspecified; R57.8 Other shock; E87.5 Hyperkalemia; I95.9 Hypotension, unspecified; Z86.010 Personal history of colon polyps; Z90.49 Acquired absence of other specified parts of digestive tract
CPT/HCPCS: 10078; 10779; 10879; 50455; 85076